=== PATIENT | female | born 1930 | race Caucasian/White ===

== ENCOUNTER 2017-11-30 08:39 | Inpatient (IN) | payer MEDICARE ==
--- NOTE | 2017-11-30 09:09 | EDM.PDOC ---
ED HPI GENERAL MEDICAL PROBLEM - General Chief Complaint: Syncope Stated Complaint: PASSED OUT CONFUSSED Time Seen by Provider: 11/30/17 08:50 Source of Information: Reports: Patient, Family, Group Home Records History Limitations: Reports: No Limitations - History of Present Illness INITIAL COMMENTS - FREE TEXT/NARRATIVE: Melodie is a resident of [facility] who arrives by EMS following an apparent syncopal episode this am. She apparently was walking with walker when she fell down. Staff who found her noted she was initially unresponsive, but eventually was answering simple questions appropriately. There is no reported slurred speech, facial asymmetry, weakness, reported chest pain or SOB. 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 A 12 lead ekg notes NSR. - Related Data Allergies Allergy/AdvReac Type Severity Reaction Status Date / Time No Known Allergies Allergy Verified 11/30/17 09:07 Home Meds: Home Meds Amitriptyline [Elavil] 25 mg PO BEDTIME 11/30/17 [History] Aspirin 325 mg PO DAILY 11/30/17 [History] Calcium Carbonate/Vitamin D3 [Calcium 500 + Vit D Caplet] 1 each PO BID [History] Donepezil HCl 5 mg PO BEDTIME 11/30/17 [History] Gabapentin [Neurontin] 600 mg PO BEDTIME 11/30/17 [History] Lisinopril 2.5 mg PO DAILY 11/30/17 [History] Past Medical History Cardiovascular History: Reports: Hypertension Neurological History: Reports: CVA Psychiatric History: Reports: Dementia ED ROS GENERAL - Review of Systems Review Of Systems: See Below Constitutional: Reports: No Symptoms HEENT: Reports: No Symptoms Respiratory: Reports: No Symptoms Cardiovascular: Reports: Blood Pressure Problem, Lightheadedness, Syncope GI/Abdominal: Reports: No Symptoms : Reports: No Symptoms Musculoskeletal: Reports: No Symptoms Skin: Reports: No Symptoms Neurological: Reports: Dizziness, Pre-Existing Deficit (remote hx of CVA), Syncope Psychiatric: Reports: No Symptoms Hematologic/Lymphatic: Reports: No Symptoms Immunologic: Reports: No Symptoms - Physical Exam Exam: See Below Exam Limited By: No Limitations General Appearance: Alert, WD/WN, No Apparent Distress, Thin Eye Exam: Bilateral Eye: EOMI, Normal Inspection, PERRL Ears: Normal External Exam, Hearing Loss Nose: Normal Inspection Throat/Mouth: Normal Inspection, Normal Oropharynx, Normal Voice, No Airway Compromise Head Exam: Atraumatic, Normocephalic Neck: Normal Inspection, Supple, Non-Tender, Full Range of Motion Respiratory/Chest: Lungs Clear, Normal Breath Sounds, Chest Non-Tender Cardiovascular: Regular Rate, Rhythm, No Murmur GI/Abdominal: Normal Bowel Sounds, Soft, Non-Tender, No Organomegaly, No Distention, No Mass (Female) Exam: Deferred Rectal (Female) Exam: Deferred Neuro Exam (Abbreviated): Alert, Oriented, CN II-XII Intact, No Motor/Sensory Deficits Back Exam: Normal Inspection Extremities: Normal Inspection, Normal Range of Motion Psychiatric: Normal Affect, Normal Mood Skin Exam: Warm, Dry, Intact, Normal Color Course - Vital Signs Text/Narrative:: Following assessment, Melodie was administered 1L NS over the next hour while awaiting lab reports: ekg noted NSR with LBBB (old); chest x ray satisfactory for age; CBC noted Hgb 12.2 gm, WBC 7600, plts normal; CMP noted BUN 22, Cr 1.5 , nonFBS 140 mg%, Troponin I <0.017. BP improved with IV fluids. Her Lisinopril needs to be held pending follow up with PCP. In addition, she will need assistance with ambulation, transfers, toileting, grooming pending re evaluation by PCP. Last Recorded V/S: Last Vital Signs Temp 37.0 C 11/30/17 09:00 Pulse 84 11/30/17 10:00 Resp 17 11/30/17 10:00 BP 86/37 L 11/30/17 10:00 Pulse Ox 100 11/30/17 10:00 - Orders/Labs/Meds Orders: Active Orders 24 hr Category Date Time Status UA W/MICROSCOPIC [URIN] Stat Lab 11/30/17 09:02 Ordered Sodium Chloride 0.9% [Normal Saline] 1,000 ml Med 11/30/17 09:15 Active IV ASDIRECTED Sodium Chloride 0.9% [Normal Saline] 500 ml Med 11/30/17 10:30 Active IV ASDIRECTED EKG 12 Lead [EK] Routine Ther 11/30/17 09:02 Ordered Medication Orders Sodium Chloride (Normal Saline) 1,000 mls @ 999 mls/hr IV ASDIRECTED HIRA Sodium Chloride (Normal Saline) 500 mls @ 999 mls/hr IV ASDIRECTED [facility] Labs: Laboratory Tests 11/30/17 11/30/17 11/30/17 Range/Units 09:15 09:15 09:15 WBC 7.6 (4.5-12.0) X10-3/uL RBC 4.23 (3.23-5.20) x10(6)uL Hgb 12.2 (11.5-15.5) g/dL Hct 36.7 (30.0-51.3) % MCV 86.7 (80-96) fL MCH 28.9 (27.7-33.6) pg MCHC 33.4 (32.2-35.4) g/dL RDW 12.5 (11.5-15.5) % Plt Count 198 (125-369) X10(3)uL MPV 8.4 (7.4-10.4) fL Neut % (Auto) 74.3 (46-82) % Lymph % (Auto) 14.2 (13-37) % Galax % (Auto) 10.7 (4-12) % Eos % (Auto) 0 L (1.0-5.0) % Baso % (Auto) 0 (0-2) % Neut # (Auto) 5.7 (1.6-8.3) # Lymph # (Auto) 1.1 (0.6-5.0) # Galax # (Auto) 0.8 (0.0-1.3) # Eos # (Auto) 0.0 (0.0-0.8) # Baso # (Auto) 0.0 (0.0-0.2) # Sodium 141 (135-145) mmol/L Potassium 4.2 (3.5-5.3) mmol/L Chloride 106 (100-110) mmol/L Carbon Dioxide 24 (21-32) mmol/L BUN 22 H (7-18) mg/dL Creatinine 1.5 H (0.55-1.02) mg/dL Est Cr Clr Drug Dosing TNP Estimated GFR (MDRD) 33 L (>60) BUN/Creatinine Ratio 14.7 (9-20) Glucose 140 H (80-116) mg/dL Calcium 9.0 (8.6-10.2) mg/dL Total Bilirubin 0.5 (0.1-1.3) mg/dL AST 21 (5-25) IU/L ALT 17 (12-36) U/L Alkaline Phosphatase 79 (56-112) IU/L Troponin I < 0.017 L (<0.017-0.056) ng/mL Total Protein 6.4 (6.0-8.0) g/dL Albumin 3.0 L (3.2-4.6) g/dL Globulin 3.4 g/dL Albumin/Globulin Ratio 0.9 Meds: Medications Generic Name Dose Route Start Last Admin Trade Name Freq PRN Reason Stop Dose Admin Sodium Chloride 1,000 mls @ 999 mls/hr 11/30/17 09:15 Normal Saline IV ASDIRECTED HIRA Sodium Chloride 500 mls @ 999 mls/hr 11/30/17 10:30 Normal Saline IV ASDIRECTED HIRA Departure - Departure Time of Disposition: 11:36 Disposition: DC/Tfer to Medicaid N[facility] Condition: Fair Clinical Impression: Syncope and collapse - Discharge Information Referrals: PCP,None [Primary Care Provider] - Forms: ED Department Discharge - Problem List & Annotations (1) Syncope and collapse SNOMED Code(s): 401392875 Code(s): R55 - SYNCOPE AND COLLAPSE Status: Acute Current Visit: Yes Annotation/Comment:: I suggested holding Lisinopril and monitoring BPs in the interim, with follow up by PCP. In addition, she will need assistance with ambulation, transfers, toileting and grooming until re evaluation by PCP. - Problem List Review Problem List Initiated/Reviewed/Updated: Yes - My Orders Last 24 Hours: My Active Orders 11/30/17 09:02 UA W/MICROSCOPIC [URIN] Stat EKG 12 Lead [EK] Routine 11/30/17 09:15 Sodium Chloride 0.9% [Normal Saline] 1,000 ml IV ASDIRECTED 11/30/17 10:30 Sodium Chloride 0.9% [Normal Saline] 500 ml IV ASDIRECTED - Assessment/Plan Last 24 Hours: My Active Orders 11/30/17 09:02 UA W/MICROSCOPIC [URIN] Stat EKG 12 Lead [EK] Routine 11/30/17 09:15 Sodium Chloride 0.9% [Normal Saline] 1,000 ml IV ASDIRECTED 11/30/17 10:30 Sodium Chloride 0.9% [Normal Saline] 500 ml IV ASDIRECTED Plan: Follow up with PCP.
[2017-11-30] MEDS ORDERED: Sodium Chloride 0.9% 1,000 ML IV SCH (09:15)
[2017-11-30] MEDS ORDERED: Sodium Chloride 0.9% 500 ML IV SCH (10:30)
--- NOTE | 2017-11-30 10:43 | CR ---
INDICATION: Syncope. CHEST: An AP upright view of the chest was obtained 11/30/2017 - no comparisons. Overlying EKG leads are noted. The heart is normal in size and shape. The aorta is minimally tortuous with calcification in the arch and descending portion. Dextroconvex scoliosis upper thoracic spine is noted of mild degree, accentuated in appearance by rotation of the chest to the left. Hyperaeration is noted, suggesting the possibility of COPD - correlate clinically. A consolidating pneumonia or effusion was not identified - Heavy markings at the costophrenic angles likely are fibrotic in nature, but do make it difficult to exclude minimal patchy bronchopneumonia. IMPRESSION: 1. No definite acute process, but difficult to exclude minimal patchy bronchopneumonia versus fibrosis at the costophrenic angles. 2. Probable COPD. 3. ASD aorta. 4. Scoliosis versus kyphosis with rotation of the chest. MTDD
--- NOTE | 2017-11-30 15:54 | CT ---
INDICATION: Unwitnessed fall. Recent episode of confusion. CT HEAD WITHOUT CONTRAST: Serial contiguous 2.5 and 5-mm sections were obtained through the brain without contrast and revealed very minimal calcification in the right vertebral artery with more prominent calcifications in the internal carotid arteries. Total Exam DLP = 1565.13 mGy-cm. A moderate sized lacunar infarct is noted in the right thalamus. A small infarct at the anterior limb of the right internal capsule and in the left basal ganglia noted also. 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 No shift of midline structures was identified. Ventricles are slightly prominent compatible with the patient's age and a mild degree of central atrophy. Also noted is cortical atrophy in the frontal area and anterior parietal, as well as temporal areas. No bleeding site or hematoma was seen. The cranium appears to be intact. Mastoid air cells are adequately aerated. Paranasal sinuses appear to be normally aerated. IMPRESSION: 1. No definite acute intracranial abnormality, although a process such as anoxic encephalopathy could be present. The findings in the white matter more likely represent moderately severe microvascular type disease process. 2. Lacunar infarcts. 3. Central and to a greater extent cortical atrophy. Report was given in person to Dr. Almanza immediately after the examination was completed, 11/30/2017. The examination had been repeated due to motion with the total exam DLP being 1565.13 mGy-cm. MTDD
[2017-12-01] MEDS: LISINOPRIL 2.5 MG PO SCH (11:27)
[2017-12-01] MEDS: Aspirin 325 MG Tab.EC PO SCH (11:28)
[2017-12-01] MEDS: Calcium Carbonate/Vitamin D3 1250 MG-200 Unit Tab PO SCH ×2 (11:28→21:19)
--- NOTE | 2017-12-01 13:41 | PN ---
DATE SEEN: 12/01/2017 SUBJECTIVE: Melodie Lee is an elderly female, 87 years of age, [facility] resident, seen today for review. Had a good night. Intravenous fluids were satisfactory, taking fluids better today. She appears otherwise comfortable. Voices concern about living situation. OBJECTIVE: VITAL SIGNS: Stable. Speech is fluent. NECK: Benign. Thyroid small. CHEST: Clear in all lung malave. No adventitious sounds. HEART: Regular without significant ectopy or murmur present. ABDOMEN: Benign. EXTREMITIES: Well perfused. ASSESSMENT: Vasovagal episode. PLAN: Medications, care and treatment appropriate, PT/OT referral, intervention and care. Treatment as appropriate. Discharge planning in place. /[id number] [address]IANO/SU TAYLOR
--- NOTE | 2017-12-01 13:41 | HP ---
ADMISSION DATE: 11/30/2017 REASON FOR ADMISSION: Fall and suspected loss of consciousness, syncope. HISTORY OF PRESENT ILLNESS: Melodie Lee is an 87-year-old female, resides at [facility]. She was in her home in her apartment at [facility], she fell, summoned assistance, attempted to get up, there was a questionable unresponsive spell, responded well, answered questions well, there were no neurological symptoms of significance. She was seen at [facility] ER. Chest x-ray revealed no major pathology except for aging changes, CT of head revealed aging changes, microvascular changes, but no complicating issues. ER laboratory work, similarly comfortable. Normal CBC. Chemistries; BUN 22, GFR 33, negative troponin, and a moderately abnormal urine to be cultured. PAST MEDICAL HISTORY: By report, previous appendectomy. 3, para 3, postmenopausal female. No other operative procedures, hospitalizations, unusual childhood diseases, major injuries, or fractures. MEDICATIONS: Present daily medications include: 1. Amitriptyline 25 mg 1 p.o. at bedtime, sleep enhancement. 2. Aspirin 325 mg daily, CAD prevention. 3. Calcium plus vitamin D2 daily nutrition. 4. Donepezil 5 mg 1 p.o. at bedtime. 5. Gabapentin 600 mg 1 p.o. at bedtime. 6. Lisinopril 2.5 mg daily. SOCIAL HISTORY: . She lives at [facility]. Nonsmoker. Nil alcohol consumption. No illicit drug use. REVIEW OF SYSTEMS: Difficult. She voices no particular complaints. Walks very little. Has upper dentures and lower plate. Breathing has been good. Bowels have been fine. No blood in stools. No blood in urine. No skin rash. Generalized weakness. PHYSICAL EXAMINATION: VITAL SIGNS: Stable and documented. CONSTITUTIONAL: Appears comfortable, soft spoken, hard of hearing. HEENT: Funduscopic benign. Conjunctivae clear. Bright tympanic membranes. Decreased hearing. Clear nasal discharge. Mouth and oropharynx clear. No intraoral lesions. Tongue midline. NECK: Benign. Thyroid small. No adenopathy. No carotid bruits. CHEST: Clear in all lung malave. No adventitious sounds. HEART: Regular. Soft. Grade 2/6 systolic ejection murmur left sternal border. ABDOMEN: Benign. Right lower quadrant appendectomy scar. AND RECTAL: Deferred. EXTREMITIES: Well perfused. Reflexes symmetric, sensation intact. LABORATORY DATA: CBC and electrolyte panel unremarkable. Urinalysis with pyuria. Culture pending. IMPRESSION: Vasovagal episode, weakness, and dehydration likely provoking issue. PLAN: Overnight stay, timing appropriate, PT and OT referral, Mobile Tester, consultation, recommendations, and care to follow. /[id number] [address]O/SU TAYLOR
[2017-12-01] MEDS ORDERED: Calcium Carbonate 500 MG Tab.Chew PO ONE (16:13)
[2017-12-01] MEDS ORDERED: Sodium Chloride 0.9% 1,000 ML IV SCH (18:30)
[2017-12-01] MEDS: Ondansetron 4 MG/2 ML SDV IVPUSH SCH ×2 (19:02→23:23)
[2017-12-01] MEDS: Amitriptyline 25 MG Tab PO SCH (21:20)
[2017-12-01] MEDS: Gabapentin 600 MG Tab *PTOM PO SCH (21:20)
[2017-12-02] MEDS: Ondansetron 4 MG/2 ML SDV IVPUSH SCH ×3 (02:11→13:37)
[2017-12-02] MEDS: Calcium Carbonate/Vitamin D3 1250 MG-200 Unit Tab PO SCH ×2 (08:40→20:40)
[2017-12-02] MEDS: Aspirin 325 MG Tab.EC PO SCH (08:41)
[2017-12-02] MEDS: LISINOPRIL 2.5 MG PO SCH (08:41)
[2017-12-02] MEDS ORDERED: Amoxicillin/Clavulanate K 500-125 MG Tab PO SCH (13:45)
--- NOTE | 2017-12-02 13:47 | PCM.DCSUM1 ---
Discharge Summary - Discharge Data Discharge Date: 12/02/17 Discharge Disposition: Home, Self-Care 01 Condition: Good - Discharge Diagnosis/Problem(s) (1) UTI (urinary tract infection), bacterial SNOMED Code(s): 148474690 ICD Code: N39.0 - URINARY TRACT INFECTION, SITE NOT SPECIFIED; A49.9 - BACTERIAL INFECTION, UNSPECIFIED Status: Acute Current Visit: Yes (2) Syncope and collapse SNOMED Code(s): 209619770 ICD Code: R55 - SYNCOPE AND COLLAPSE Status: Acute Current Visit: Yes - Patient Summary/Data Consults: Consultations 12/01/17 10:16 Consult to Physical Therapy [PT Evaluation and Treatment] [CONS] Routine Please Evaluate and Treat. PT Reason for Consult: weakness an d recent fall This query below is only for informational purposes and is not editable. Admission Diagnosis/Problem: Syncope and collapse 12/01/17 10:21 Consult to Occupational Therapy [OT Evaluation and Treatment] [CONS] Routine Please Evaluate and Treat. OT Reason for Consult: wekaness recent fall This query below is only for informational purposes and is not editable. Admission Diagnosis/Problem: Syncope and collapse - Discharge Plan Prescriptions/Med Rec: Amoxicillin/Clavulanate K [Augmentin 500-125 MG] 1 tab PO Q12HR 5 Days tablet Home Medications: Home Meds Amitriptyline [Elavil] 25 mg PO BEDTIME 11/30/17 [History] Aspirin 325 mg PO DAILY 11/30/17 [History] Calcium Carbonate/Vitamin D3 [Calcium 500 + Vit D Caplet] 1 each PO BID [History] Donepezil HCl 5 mg PO BEDTIME 11/30/17 [History] Gabapentin [Neurontin] 600 mg PO BEDTIME 11/30/17 [History] Lisinopril 2.5 mg PO DAILY 11/30/17 [History] Amoxicillin/Clavulanate K [Augmentin 500-125 MG] 1 tab PO Q12HR 5 Days tablet 12/02/17 [Rx] Patient Handouts: Near-Syncope, [id number], Fall Prevention in Hospitals, Adult, Venous Thromboembolism Prevention Forms: ED Department Discharge Referrals: PCP,None [Primary Care Provider] - - Patient Data Vitals - Most Recent: Last Vital Signs Temp 100 F 12/02/17 04:00 Pulse 99 12/02/17 04:00 Resp 20 12/02/17 04:00 BP 164/72 H 12/02/17 08:41 Pulse Ox 93 L 12/02/17 04:00 Weight - Most Recent: 54.93 kg I&O - Last 24 hours: Intake & Output 12/01/17 12/02/17 12/02/17 22:59 06:59 14:59 Intake Total 596 Output Total 300 0 Balance -300 596 ROLY Results - Last 24 hrs: Microbiology 11/30/17 17:10 Urine Culture - Preliminary Urine, Voided Gram Positive Cocci Med Orders - Current: Current Medications Amitriptyline HCl (Elavil) 25 mg PO BEDTIME [facility] Last Admin: 12/01/17 21:20 Dose: 25 mg Amoxicillin/Clavulanate Potassium (Augmentin 500 Mg\125 Mg) 1 tab PO Q12H [facility] Aspirin (Ecotrin) 325 mg PO DAILY [facility] Last Admin: 12/02/17 08:41 Dose: 325 mg Calcium Carbonate (Calcium Carbonate/Vitamin D 1250 Mg-200 Unit) 1 tab PO BID [facility] Last Admin: 12/02/17 08:40 Dose: 1 tab Donepezil HCl (Aricept) 5 mg PO BEDTIME [facility] Last Admin: 12/01/17 21:19 Dose: 5 mg Gabapentin (Neurontin) 600 mg PO BEDTIME [facility] Last Admin: 12/01/17 21:20 Dose: 600 mg Sodium Chloride (Normal Saline) 1,000 mls @ 999 mls/hr IV ASDIRECTED [facility] Last Admin: 11/30/17 09:15 Dose: 999 mls/hr Sodium Chloride (Normal Saline) 500 mls @ 999 mls/hr IV ASDIRECTED [facility] Last Admin: 11/30/17 10:25 Dose: 999 mls/hr Sodium Chloride (Normal Saline) 1,000 mls @ 75 mls/hr IV ASDIRECTED [facility] Last Admin: 12/01/17 19:03 Dose: 75 mls/hr Lisinopril (Prinivil) 2.5 mg PO DAILY [facility] Last Admin: 12/02/17 08:41 Dose: 2.5 mg Ondansetron HCl (Zofran) 4 mg IVPUSH Q4H [facility] Last Admin: 12/02/17 13:37 Dose: Not Given Discontinued Medications Calcium Carbonate/Glycine (Tums) 1,000 mg PO ONETIME ONE Stop: 12/01/17 16:14 Last Admin: 12/01/17 16:42 Dose: 1,000 mg
[2017-12-02] MEDS ORDERED: Ondansetron 4 MG/2 ML SDV IVPUSH PRN (14:04)
[2017-12-02] MEDS: Ampicillin/Sulbactam Na 1.5 GM in Sodium Chloride 0.9% 50 ML IV SCH (15:18)
--- NOTE | 2017-12-02 15:21 | CR ---
INDICATION: Cough, shortness of breath. CHEST: Two AP upright views of the chest with a lateral view of the chest, 01/2018, were compared with 11/30/2017, and revealed increased infiltrate at the left lung base - costophrenic angle and lower lobe - suggesting pneumonia, possibly some atelectasis in that area. No other change or new acute process was suggested. Findings remain compatible with COPD, ASD aorta, with some scoliosis present. Overlying EKG leads are again noted. IMPRESSION: Increasing parenchymal changes suggested at the left lung base to a minimal degree, suggesting slightly more progressive pneumonia and/or atelectasis in the left lung base - lower lobe. MTDD
[2017-12-02] MEDS: Sodium Chloride 0.9% 10 ML Syringe FLUSH PRN (15:54)
--- NOTE | 2017-12-02 19:34 | PCM.PN ---
- General Info Date of Service: 12/02/17 Subjective Update: 87-year-old female currently hospitalized for debility malaise secondary to UTI growing gram-positive cocci with culture ID and susceptibility pending. She is to come more weak with decreased appetite increase cough congestion along with shortness of breath. She denies any headache, chest pain, vision changes, difficulty chewing or swallowing, speech changes, ear pain, sore throat, swollen glands, nausea or vomiting, wheezing chest pain with cough or deep inspiration, joint swelling or tenderness, palpitations, lightheadedness or dizziness on position change, she admits to feeling cool in the extremities, denies any calf or leg pain. 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 She denies any wounds or pain at her IV access sites. Tells me she has "" tired. " This is my first seeing her, she had up into this point and ready to be discharged today as she made marked improvements with regards to strength, ambulation, resolution of near syncopal episodes, with physiologic vitals, afebrile, slightly improved intake however she has significant history of poor appetite and intake which is been ongoing for the last 2 months. - Review of Systems Systems Review Comment:: For pertinent positives and negatives please see history of present illness - Patient Data Vitals - Most Recent: Last Vital Signs Temp 98.2 F 12/02/17 12:00 Pulse 90 12/02/17 12:00 Resp 18 12/02/17 12:00 BP 112/63 12/02/17 12:00 Pulse Ox 98 12/02/17 12:00 Weight - Most Recent: 54.93 kg I&O - Last 24 Hours: Intake & Output 12/02/17 12/02/17 06:59 14:59 Intake Total 596 600 Output Total 0 30 Balance 596 570 Aiden Results Last 24 Hours: Microbiology 11/30/17 17:10 Urine Culture - Preliminary Urine, Voided Gram Positive Cocci Med Orders - Current: Current Medications Amitriptyline HCl (Elavil) 25 mg PO BEDTIME [facility] Last Admin: 12/01/17 21:20 Dose: 25 mg Aspirin (Ecotrin) 325 mg PO DAILY [facility] Last Admin: 12/02/17 08:41 Dose: 325 mg Calcium Carbonate (Calcium Carbonate/Vitamin D 1250 Mg-200 Unit) 1 tab PO BID [facility] Last Admin: 12/02/17 08:40 Dose: 1 tab Donepezil HCl (Aricept) 5 mg PO BEDTIME [facility] Last Admin: 12/01/17 21:19 Dose: 5 mg Gabapentin (Neurontin) 600 mg PO BEDTIME [facility] Last Admin: 12/01/17 21:20 Dose: 600 mg Ampicillin Sodium/Sulbactam (Sodium 1.5 gm/ Sodium Chloride) 50 mls @ 100 mls/ hr IV Q12H [facility] Last Admin: 12/02/17 15:18 Dose: 100 mls/hr Levofloxacin/Dextrose 750 mg/ (Premix) 150 mls @ 100 mls/hr IV Q48H [facility] Stop: 12/07/17 20:01 Lisinopril (Prinivil) 2.5 mg PO DAILY [facility] Last Admin: 12/02/17 08:41 Dose: 2.5 mg Sodium Chloride (Saline Flush) 10 ml FLUSH ASDIRECTED PRN PRN Reason: Keep Vein Open Last Admin: 12/02/17 15:54 Dose: 10 ml Discontinued Medications Amoxicillin/Clavulanate Potassium (Augmentin 500 Mg\\125 Mg) 1 tab PO Q12H [facility] Calcium Carbonate/Glycine (Tums) 1,000 mg PO ONETIME ONE Stop: 12/01/17 16:14 Last Admin: 12/01/17 16:42 Dose: 1,000 mg Sodium Chloride (Normal Saline) 1,000 mls @ 999 mls/hr IV ASDIRECTED [facility] Last Admin: 11/30/17 09:15 Dose: 999 mls/hr Sodium Chloride (Normal Saline) 500 mls @ 999 mls/hr IV ASDIRECTED [facility] Last Admin: 11/30/17 10:25 Dose: 999 mls/hr Sodium Chloride (Normal Saline) 1,000 mls @ 75 mls/hr IV ASDIRECTED [facility] Last Admin: 12/01/17 19:03 Dose: 75 mls/hr Ondansetron HCl (Zofran) 4 mg IVPUSH Q4H [facility] Last Admin: 12/02/17 13:37 Dose: Not Given Ondansetron HCl (Zofran) 4 mg IVPUSH Q8H PRN PRN Reason: Nausea - Exam Quality Assessment: Supplemental Oxygen General: Oriented, Cooperative, Lethargic HEENT: Pupils Equal, Pupils Reactive. No: Mucous Membr. Moist/Bessie Neck: Supple Lungs: Decreased Breath Sounds, Crackles, Rales Cardiovascular: Regular Rate, Regular Rhythm, Murmurs (2/6) GI/Abdominal Exam: Normal Bowel Sounds, Soft, Non-Tender Extremities: Non-Tender, No Pedal Edema Skin: Dry, Cool Neurological: No New Focal Deficit, Normal Speech - Problem List & Annotations (1) CAP (community acquired pneumonia) SNOMED Code(s): 923437134 Code(s): J18.9 - PNEUMONIA, UNSPECIFIED ORGANISM Status: Acute Current Visit: Yes Qualifiers: Laterality: left (2) UTI (urinary tract infection), bacterial SNOMED Code(s): 292429748 Code(s): N39.0 - URINARY TRACT INFECTION, SITE NOT SPECIFIED; A49.9 - BACTERIAL INFECTION, UNSPECIFIED Status: Acute Current Visit: Yes (3) Palliative care status SNOMED Code(s): 195858114 Code(s): Z51.5 - ENCOUNTER FOR PALLIATIVE CARE Status: Acute Current Visit: Yes (4) Complaint of debility and malaise SNOMED Code(s): 811026823 Code(s): R53.81 - OTHER MALAISE Status: Acute Current Visit: Yes (5) DNI (do not intubate) SNOMED Code(s): 415192981 Code(s): Z78.9 - OTHER SPECIFIED HEALTH STATUS Status: Acute Current Visit: Yes (6) DNR (do not resuscitate) Status: Acute Current Visit: Yes (7) Syncope and collapse SNOMED Code(s): 285605111 Code(s): R55 - SYNCOPE AND COLLAPSE Status: Acute Current Visit: Yes - Problem List Review Problem List Initiated/Reviewed/Updated: Yes - My Orders Last 24 Hours: My Active Orders 12/02/17 BASIC METABOLIC PANEL,BMP [CHEM] Routine C-REACTIVE PROTEIN [CHEM] Routine CBC WITH AUTO DIFF [HEME] Routine 12/02/17 14:11 Sodium Chloride 0.9% [Saline Flush] 10 ml FLUSH ASDIRECTED PRN Convert IV to Saline Lock [OM.PC] Routine 12/02/17 14:30 Ampicillin/Sulbactam Na [Unasyn] 1.5 gm Sodium Chloride 0.9% [Normal Saline] 50 ml IV Q12H 12/02/17 16:13 Discontinue Telemetry Monitoring [Cardiac Monitoring Discontinue] [RC] Click to Edit 12/02/17 19:30 Levofloxacin/Dextrose 5%-Water [Levaquin in D5W 750 MG/150 ML] 750 mg Premix Bag 1 bag IV Q48H 12/02/17 19:31 CULTURE BLOOD [BC] Urgent CULTURE BLOOD [BC] Urgent Blood Culture x2 Reflex Set [OM.PC] Urgent 12/02/17 19:45 Enoxaparin [Lovenox] 30 mg SUBCUT Q24H - Assessment Assessment:: Please see above - Plan Plan:: Patient is actually taken the turn with regards to her alertness and overall fatigue. Physical therapy also notes a significant decline in functional status with regards to transfers and ADLs when compared to yesterday. No focal deficit for cardiopulmonary evidence for event. She was a plan for discharge today she was doing well however at this point she does look to be on the dry side as she has not been taking much oral intake. Culture report on the urine is coming back gram-positive covering for Levaquin sounds in the lungs consistent with pneumonia loss beta-lactam for gram-positive. Once culture sensitivities are back will tailor antibiotic therapy accordingly. IV the preferred route she is not taking much for oral intake. We'll also get her on IV fluids however monitor closely for any fluid overload. Will watch closely overnight. Discussed this with patient and her daughter who is at the bedside and they both agreed to above plan of care. I do anticipate length of stay an additional 24-48 hours pending response to the above medical management. We will continue to try and work with physical therapy and occupational therapy for strengthening and ADLs.
[2017-12-02] MEDS: Enoxaparin 30 MG/0.3 ML Syringe SUBCUT SCH (20:39)
[2017-12-02] MEDS: Amitriptyline 25 MG Tab PO SCH (20:40)
[2017-12-02] MEDS: Gabapentin 600 MG Tab *PTOM PO SCH (20:40)
[2017-12-02] MEDS: Levofloxacin/Dextrose 5%-Water 750 MG in Premix Bag 1 BAG IV SCH (21:50)
[2017-12-03] MEDS: Ampicillin/Sulbactam Na 1.5 GM in Sodium Chloride 0.9% 50 ML IV SCH (02:22)
[2017-12-03] MEDS ORDERED: Sodium Chloride 0.9% 1,000 ML IV SCH ×2 (05:30→14:30)
[2017-12-03] MEDS: Calcium Carbonate/Vitamin D3 1250 MG-200 Unit Tab PO SCH ×2 (09:08→21:20)
[2017-12-03] MEDS: Aspirin 325 MG Tab.EC PO SCH (09:08)
--- NOTE | 2017-12-03 11:33 | PCM.PN ---
- General Info Date of Service: 12/03/17 Subjective Update: Patient is currently lying supine in her bed with both legs elevated knees flexed and head of bed and slight Trendelenburg. She did have an episode of hypotension down to 46 systolic which was remedied by utilization of IV fluid bolus, which did bring her blood pressure back up to the low 80s systolic. She is not having any chest pain pressure or difficulty breathing. Otherwise was asymptomatic. She was in bed when a routine check noticed the diminished blood pressure. She had cool extremities. At this time she is quite weak he takes in a quiet soft voice to the intelligible. Skin is cool to the touch. She has no new focal deficit. She has no chest pain to palpation. She does not show any increased work of breathing. There is no sign of rash, lesions or jaundice. No ecchymosis or petechiae. Tells me she is very tired. EKG review did not show any evidence of acute ST segment elevated MN. Enzymes initially negative. Please see nursing documentation for overnight events. - Review of Systems Systems Review Comment:: For pertinent positives and negatives please see history of present illness - Patient Data Vitals - Most Recent: Last Vital Signs Temp 98.2 F 12/03/17 05:15 Pulse 80 12/03/17 05:15 Resp 18 12/03/17 05:15 BP 43/27 L 12/03/17 05:15 Pulse Ox 90 L 12/03/17 05:15 Weight - Most Recent: 55.066 kg I&O - Last 24 Hours: Intake & Output 12/02/17 12/03/17 22:59 06:59 Intake Total 200 678 Balance 200 678 Lab Results Last 24 Hours: Laboratory Results - last 24 hr 12/02/17 12/02/17 Range/Units 20:30 20:30 WBC 4.7 (4.5-12.0) X10-3/uL RBC 4.65 (3.23-5.20) x10(6)uL Hgb 13.1 (11.5-15.5) g/dL Hct 40.0 (30.0-51.3) % MCV 86.0 (80-96) fL MCH 28.1 (27.7-33.6) pg MCHC 32.7 (32.2-35.4) g/dL RDW 12.9 (11.5-15.5) % Plt Count 194 (125-369) X10(3)uL MPV 8.3 (7.4-10.4) fL Neut % (Auto) 66.9 (46-82) % Lymph % (Auto) 21.2 (13-37) % [place] % (Auto) 11.2 (4-12) % Eos % (Auto) 0 L (1.0-5.0) % Baso % (Auto) 1 (0-2) % Neut # (Auto) 3.2 (1.6-8.3) # Lymph # (Auto) 1.0 (0.6-5.0) # [place] # (Auto) 0.5 (0.0-1.3) # Eos # (Auto) 0.0 (0.0-0.8) # Baso # (Auto) 0.0 (0.0-0.2) # Sodium 134 L (135-145) mmol/L Potassium 4.0 (3.5-5.3) mmol/L Chloride 99 L D (100-110) mmol/L Carbon Dioxide 27 (21-32) mmol/L BUN 19 H (7-18) mg/dL Creatinine 1.1 H (0.55-1.02) mg/dL Est Cr Clr Drug Dosing 30.53 mL/min Estimated GFR (MDRD) 47 L (>60) BUN/Creatinine Ratio 17.3 (9-20) Glucose 98 (80-116) mg/dL Calcium 9.4 (8.6-10.2) mg/dL Aiden Results Last 24 Hours: Microbiology 11/30/17 17:10 Urine Culture - Final Urine, Voided Enterococcus Faecalis Med Orders - Current: Current Medications Amitriptyline HCl (Elavil) 25 mg PO BEDTIME [facility] Last Admin: 12/02/17 20:40 Dose: 25 mg Aspirin (Ecotrin) 325 mg PO DAILY [facility] Last Admin: 12/03/17 09:08 Dose: 325 mg Calcium Carbonate (Calcium Carbonate/Vitamin D 1250 Mg-200 Unit) 1 tab PO BID [facility] Last Admin: 12/03/17 09:08 Dose: 1 tab Donepezil HCl (Aricept) 5 mg PO BEDTIME [facility] Last Admin: 12/02/17 20:40 Dose: 5 mg Enoxaparin Sodium (Lovenox) 30 mg SUBCUT Q24H [facility] Last Admin: 12/02/17 20:39 Dose: 30 mg Gabapentin (Neurontin) 300 mg PO BEDTIME [facility] Levofloxacin/Dextrose 750 mg/ (Premix) 150 mls @ 100 mls/hr IV Q48H [facility] Stop: 12/07/17 20:01 Last Admin: 12/02/17 21:50 Dose: 100 mls/hr Mirtazapine (Remeron) 15 mg PO BEDTIME [facility] Sodium Chloride (Saline Flush) 10 ml FLUSH ASDIRECTED PRN PRN Reason: Keep Vein Open Last Admin: 12/02/17 15:54 Dose: 10 ml Discontinued Medications Amoxicillin/Clavulanate Potassium (Augmentin 500 Mg\125 Mg) 1 tab PO Q12H [facility] Calcium Carbonate/Glycine (Tums) 1,000 mg PO ONETIME ONE Stop: 12/01/17 16:14 Last Admin: 12/01/17 16:42 Dose: 1,000 mg Gabapentin (Neurontin) 600 mg PO BEDTIME [facility] Last Admin: 12/02/17 20:40 Dose: 600 mg Sodium Chloride (Normal Saline) 1,000 mls @ 999 mls/hr IV ASDIRECTED [facility] Last Admin: 11/30/17 09:15 Dose: 999 mls/hr Sodium Chloride (Normal Saline) 500 mls @ 999 mls/hr IV ASDIRECTED [facility] Last Admin: 11/30/17 10:25 Dose: 999 mls/hr Sodium Chloride (Normal Saline) 1,000 mls @ 75 mls/hr IV ASDIRECTED [facility] Last Admin: 12/01/17 19:03 Dose: 75 mls/hr Ampicillin Sodium/Sulbactam (Sodium 1.5 gm/ Sodium Chloride) 50 mls @ 100 mls/ hr IV Q12H [facility] Last Admin: 12/03/17 02:22 Dose: 100 mls/hr Sodium Chloride (Normal Saline) 1,000 mls @ 999 mls/hr IV ASDIRECTED [facility] Stop: 12/03/17 06:30 Last Admin: 12/03/17 05:25 Dose: 500 mls/hr Lisinopril (Prinivil) 2.5 mg PO DAILY [facility] Last Admin: 12/02/17 08:41 Dose: 2.5 mg Ondansetron HCl (Zofran) 4 mg IVPUSH Q4H [facility] Last Admin: 12/02/17 13:37 Dose: Not Given Ondansetron HCl (Zofran) 4 mg IVPUSH Q8H PRN PRN Reason: Nausea - Exam Quality Assessment: Supplemental Oxygen General: Oriented, Cooperative, Lethargic (very) HEENT: Pupils Equal, Pupils Reactive, Other (Dry mucous membranes). No: Scleral Icterus Neck: Supple. No: No JVD Lungs: Decreased Breath Sounds, Crackles Cardiovascular: Regular Rate, Regular Rhythm, Murmurs (2/6) GI/Abdominal Exam: Soft, Non-Tender, Other (Diminished bowel sounds). No: Rigid Extremities: Non-Tender, Slow Capillary Refill, Other (1+ edema bilateral left to the mention). No: Leg Pain Peripheral Pulses: 1+: Dorsalis Pedis (L), Dorsalis Pedis (R), 2+: Carotid (L), Carotid (R), Radial (L), Radial (R) Skin: Intact, Cool Neurological: No New Focal Deficit, Normal Speech, Strength Equal Bilateral, Sensation Intact, Cranial Nerves Intact - Problem List & Annotations (1) Cardiogenic shock SNOMED Code(s): 72349557 Code(s): R57.0 - CARDIOGENIC SHOCK Status: Acute Current Visit: Yes (2) Septic shock SNOMED Code(s): 86324221 Code(s): A41.9 - SEPSIS, UNSPECIFIED ORGANISM; R65.21 - SEVERE SEPSIS WITH SEPTIC SHOCK Status: Acute Current Visit: Yes (3) CAP (community acquired pneumonia) SNOMED Code(s): 237099700 Code(s): J18.9 - PNEUMONIA, UNSPECIFIED ORGANISM Status: Acute Current Visit: Yes Qualifiers: Laterality: left (4) UTI (urinary tract infection), bacterial SNOMED Code(s): 296784616 Code(s): N39.0 - URINARY TRACT INFECTION, SITE NOT SPECIFIED; A49.9 - BACTERIAL INFECTION, UNSPECIFIED Status: Acute Current Visit: Yes (5) Hypotension SNOMED Code(s): 58678370 Code(s): I95.9 - HYPOTENSION, UNSPECIFIED Status: Acute Priority: High Current Visit: Yes Onset Date: 12/03/17 (6) Palliative care status SNOMED Code(s): 263792158 Code(s): Z51.5 - ENCOUNTER FOR PALLIATIVE CARE Status: Acute Current Visit: Yes (7) Complaint of debility and malaise SNOMED Code(s): 345335302 Code(s): R53.81 - OTHER MALAISE Status: Acute Current Visit: Yes (8) DNI (do not intubate) SNOMED Code(s): 636902592 Code(s): Z78.9 - OTHER SPECIFIED HEALTH STATUS Status: Acute Current Visit: Yes (9) DNR (do not resuscitate) Status: Acute Current Visit: Yes (10) Syncope and collapse SNOMED Code(s): 025536922 Code(s): R55 - SYNCOPE AND COLLAPSE Status: Acute Current Visit: Yes (11) History of CVA with residual deficit SNOMED Code(s): 984362773 Code(s): I69.30 - UNSPECIFIED SEQUELAE OF CEREBRAL INFARCTION Status: Acute Current Visit: Yes - Problem List Review Problem List Initiated/Reviewed/Updated: Yes - My Orders Last 24 Hours: My Active Orders 12/03/17 11:26 BASIC METABOLIC PANEL,BMP [CHEM] Routine CBC WITH AUTO DIFF [HEME] Routine PRO B-TYPE NATRIUR PEPT,BNPPRO [CHEM] Routine 12/03/17 11:27 EKG Documentation Completion [RC] ASDIRECTED TROPONIN I [CHEM] Routine EKG 12 Lead [EK] Routine 12/03/17 11:28 Notify Provider Vital Signs [RC] ASDIRECTED Vital Signs [RC] Q30M 12/03/17 11:29 Communication Order [RC] Q4H 12/03/17 21:00 Gabapentin [Neurontin] 300 mg PO BEDTIME Mirtazapine [Remeron] 15 mg PO BEDTIME - Assessment Assessment:: Assessment please see above - Plan Plan:: Discussed the patient and her daughter the overnight events. Preliminary cardiac enzymes and EKG do not show large acute cardiac defect, I also discussed the results of the urine culture which shows susceptibility of enterococcus to Levaquin which we will continue IV and discontinue the ampicillin. Discussed that recent hypotension could be the result of bacterial infection once encountered with antibiotics leading to peripheral vascular dilation leading to hypoperfusion at which point could also lead to heart attack and/or stroke. At this point we have treated with fluid which is appropriate and her blood pressures have improved however we will continue to monitor vitals every 15-30 minutes and if not improving with a systolic blood pressure greater than 100 and she will be transferred to the ICU for one-on-one nursing and telemetry. Will also be placing urinary catheter for strict ins and outs monitoring should she require more fluid resuscitation for she she require vasopressors to support her blood pressure and organ perfusion. I did discuss with the patient and her daughter regarding her CODE STATUS and they both indicate that she would not want to be intubated for ventilatory support nor have any type of cardiac resuscitation in the form of chest compressions, defibrillation or external pacing. Also tells me that should she continue to have decreased appetite and not wish to take oral nutrition, she does not wish to have any form of parentaral nutrition nor gastric tubes. They do agree to be treated medically which is appropriate and do agreed ICU admission which will likely be required. Do anticipate hospital stay an additional 48-72 hours pending response to the above medical management. Appropriate labs and studies will be ordered accordingly and intermittently as needed. The patient does agree to these evaluations, monitoring and interventions.
[2017-12-03] MEDS ORDERED: Nitroglycerin 0.4 MG Tab.SL SL PRN (16:37)
[2017-12-03] MEDS ORDERED: Lanolin/Mineral Oil/Petrolatum Ophth Oint 3.5 GM Tube EYERT PRN (16:37)
[2017-12-03] MEDS ORDERED: DOBUTamine/Dextrose 5%-Water 500 MG/250 ML BAG IV SCH (16:45)
[2017-12-03] MEDS: Enoxaparin 30 MG/0.3 ML Syringe SUBCUT SCH (20:51)
[2017-12-03] MEDS ORDERED: Gabapentin 300 MG Cap PO SCH (21:00)
[2017-12-03] MEDS ORDERED: Mirtazapine 15 MG Tab PO SCH (21:00)
[2017-12-04] MEDS ORDERED: Sodium Chloride 0.9% 250 ML IV ONE ×2 (02:47→03:15)
[2017-12-04] MEDS: Sodium Chloride 0.9% 10 ML Syringe FLUSH PRN (03:00)
[2017-12-04] MEDS ORDERED: Sodium Chloride 0.9% 1,000 ML IV SCH (06:30)
[2017-12-04] MEDS ORDERED: DOBUTamine/Dextrose 5%-Water 250 MG/250 ML BAG IV SCH (06:45)
[2017-12-04] MEDS ORDERED: cefTRIAXone 1,000 MG in Sodium Chloride 0.9% 50 ML IV SCH (09:00)
--- NOTE | 2017-12-04 09:02 | PCM.PN ---
- General Info Date of Service: 12/04/17 Subjective Update: Patient is being seen in ICU 1. She required transfer yesterday afternoon after serial vitals indicated systolic blood pressures running in the 60s to 80s, along with decreasing mental status and increasing fatigue. Evaluation at that time did show clinical signs and symptoms consistent with right cerebrovascular event with right-sided facial drooping, deviation of the tongue, left upper and lower extremity weakness when compared to the right. Stat head CT was negative for acute intracranial bleed prior CVAs were noted. EKG was negative for acute ST segment elevation however cardiac enzymes were slightly elevated. CRP also elevated slightly up to 4. Urine output had decreased and Muir catheter was placed for strict monitoring of intake and output. I started her on a dobutamine drip roughly 6:30 AM due to sustained low blood pressures and evidence of hypoperfusion. She continue to remain alert oriented without cardiopulmonary distress denied shortness of breath or chest pain pressure. She only discussed having a right temporal headache which was dull. (Her daughter is here with her at the bedside, I spoken with her on the phone during the evening shortly after transfer to the ICU informing her that her status had significantly changed indicating she has had a repeat right CVA and possible NV in the setting of sepsis)-I informed her that there was a possibility she would not make it through the evening despite medical interventions. Again she agreed that she did not want any heroic measures but did agree to pressors and continuing fluids antibiotics and other medical interventions as warranted. - Review of Systems Systems Review Comment:: Main complaint was that "I'm very cold ". We had to put roughly 5 blankets on her to keep her warm. She was starting to show an elevation in temperature. - Patient Data Vitals - Most Recent: Last Vital Signs Temp 100.1 F 12/04/17 06:00 Pulse 90 12/04/17 07:15 Resp 19 12/04/17 08:00 BP 80/48 L 12/04/17 08:00 Pulse Ox 98 12/04/17 08:00 Weight - Most Recent: 56.245 kg I&O - Last 24 Hours: Intake & Output 12/03/17 12/04/17 22:59 06:59 Intake Total 450 Output Total 1000 275 Balance -1000 175 Lab Results Last 24 Hours: Laboratory Results - last 24 hr 12/03/17 12/03/17 12/03/17 Range/Units 12:45 12:45 12:45 WBC 4.0 L (4.5-12.0) X10-3/uL RBC 4.08 (3.23-5.20) x10(6)uL Hgb 11.7 (11.5-15.5) g/dL Hct 35.4 (30.0-51.3) % MCV 86.7 (80-96) fL MCH 28.8 (27.7-33.6) pg MCHC 33.2 (32.2-35.4) g/dL RDW 12.6 (11.5-15.5) % Plt Count 144 (125-369) X10(3)uL MPV 8.3 (7.4-10.4) fL Neut % (Auto) 51.5 (46-82) % Lymph % (Auto) 33.8 (13-37) % Rooks % (Auto) 13.7 H (4-12) % Eos % (Auto) 0 L (1.0-5.0) % Baso % (Auto) 1 (0-2) % Neut # (Auto) 2.0 (1.6-8.3) # Lymph # (Auto) 1.4 (0.6-5.0) # Rooks # (Auto) 0.6 (0.0-1.3) # Eos # (Auto) 0.0 (0.0-0.8) # Baso # (Auto) 0.0 (0.0-0.2) # Sodium 135 (135-145) mmol/L Potassium 3.7 (3.5-5.3) mmol/L Chloride 103 (100-110) mmol/L Carbon Dioxide 24 (21-32) mmol/L BUN 27 H (7-18) mg/dL Creatinine 1.4 H (0.55-1.02) mg/dL Est Cr Clr Drug Dosing 23.99 mL/min Estimated GFR (MDRD) 35 L (>60) BUN/Creatinine Ratio 19.3 (9-20) Glucose 100 (80-116) mg/dL Calcium 8.8 (8.6-10.2) mg/dL Troponin I (<0.017-0.056) ng/mL NT-Pro-B Natriuret Pep 2231 H* (<=450) pg/mL 12/03/17 Range/Units 12:45 WBC (4.5-12.0) X10-3/uL RBC (3.23-5.20) x10(6)uL Hgb (11.5-15.5) g/dL Hct (30.0-51.3) % MCV (80-96) fL MCH (27.7-33.6) pg MCHC (32.2-35.4) g/dL RDW (11.5-15.5) % Plt Count (125-369) X10(3)uL MPV (7.4-10.4) fL Neut % (Auto) (46-82) % Lymph % (Auto) (13-37) % Rooks % (Auto) (4-12) % Eos % (Auto) (1.0-5.0) % Baso % (Auto) (0-2) % Neut # (Auto) (1.6-8.3) # Lymph # (Auto) (0.6-5.0) # Rooks # (Auto) (0.0-1.3) # Eos # (Auto) (0.0-0.8) # Baso # (Auto) (0.0-0.2) # Sodium (135-145) mmol/L Potassium (3.5-5.3) mmol/L Chloride (100-110) mmol/L Carbon Dioxide (21-32) mmol/L BUN (7-18) mg/dL Creatinine (0.55-1.02) mg/dL Est Cr Clr Drug Dosing mL/min Estimated GFR (MDRD) (>60) BUN/Creatinine Ratio (9-20) Glucose (80-116) mg/dL Calcium (8.6-10.2) mg/dL Troponin I 0.064 H (<0.017-0.056) ng/mL NT-Pro-B Natriuret Pep (<=450) pg/mL Aiden Results Last 24 Hours: Microbiology 12/02/17 20:30 Aerobic Blood Culture - Preliminary Blood - Venous NO GROWTH AFTER 1 DAY Anaerobic Blood Culture - Preliminary NO GROWTH AFTER 1 DAY 12/02/17 20:35 Aerobic Blood Culture - Preliminary Blood - Venous - Lab Draw NO GROWTH AFTER 1 DAY Anaerobic Blood Culture - Preliminary NO GROWTH AFTER 1 DAY Med Orders - Current: Current Medications Acetaminophen (Tylenol) 650 mg PO Q4H PRN PRN Reason: fever > 101 Amitriptyline HCl (Elavil) 25 mg PO BEDTIME [facility] Last Admin: 12/02/17 20:40 Dose: 25 mg Artificial Tears (Artificial Tears) 0 gm EYERT DAILY PRN PRN Reason: Dry Eyes Aspirin (Ecotrin) 325 mg PO DAILY [facility] Last Admin: 12/03/17 09:08 Dose: 325 mg Calcium Carbonate (Calcium Carbonate/Vitamin D 1250 Mg-200 Unit) 1 tab PO BID [facility] Last Admin: 12/03/17 21:20 Dose: Not Given Donepezil HCl (Aricept) 5 mg PO BEDTIME [facility] Last Admin: 12/03/17 21:20 Dose: Not Given Enoxaparin Sodium (Lovenox) 30 mg SUBCUT Q24H [facility] Last Admin: 12/03/17 20:51 Dose: 30 mg Gabapentin (Neurontin) 300 mg PO BEDTIME [facility] Last Admin: 12/03/17 21:21 Dose: Not Given Levofloxacin/Dextrose 750 mg/ (Premix) 150 mls @ 100 mls/hr IV Q48H [facility] Stop: 12/07/17 20:01 Last Admin: 12/02/17 21:50 Dose: 100 mls/hr Sodium Chloride (Normal Saline) 1,000 mls @ 75 mls/hr IV ASDIRECTED [facility] Last Admin: 12/04/17 06:47 Dose: 75 mls/hr Dobutamine HCl/Dextrose (Dobutamine In D5w 250 Mg/250 Ml) 250 mg in 250 mls @ 6.749 mls/hr IV TITRATE [facility]IRA; Protocol Last Titration: 12/04/17 08:27 Dose: 5 mcg/kg/min, 16.874 mls/hr Ceftriaxone Sodium 1,000 mg/ (Sodium Chloride) 50 mls @ 100 mls/hr IV Q24H [facility] Mirtazapine (Remeron) 15 mg PO BEDTIME [facility] Nitroglycerin (Nitrostat) 0.4 mg SL Q5M PRN PRN Reason: Chest Pain Sodium Chloride (Saline Flush) 10 ml FLUSH ASDIRECTED PRN PRN Reason: Keep Vein Open Last Admin: 12/04/17 03:00 Dose: 10 ml Discontinued Medications Amoxicillin/Clavulanate Potassium (Augmentin 500 Mg\\125 Mg) 1 tab PO Q12H [facility] Calcium Carbonate/Glycine (Tums) 1,000 mg PO ONETIME ONE Stop: 12/01/17 16:14 Last Admin: 12/01/17 16:42 Dose: 1,000 mg Gabapentin (Neurontin) 600 mg PO BEDTIME [facility] Last Admin: 12/02/17 20:40 Dose: 600 mg Sodium Chloride (Normal Saline) 1,000 mls @ 999 mls/hr IV ASDIRECTED [facility] Last Admin: 11/30/17 09:15 Dose: 999 mls/hr Sodium Chloride (Normal Saline) 500 mls @ 999 mls/hr IV ASDIRECTED [facility] Last Admin: 11/30/17 10:25 Dose: 999 mls/hr Sodium Chloride (Normal Saline) 1,000 mls @ 75 mls/hr IV ASDIRECTED [facility] Last Admin: 12/01/17 19:03 Dose: 75 mls/hr Ampicillin Sodium/Sulbactam (Sodium 1.5 gm/ Sodium Chloride) 50 mls @ 100 mls/ hr IV Q12H [facility] Last Admin: 12/03/17 02:22 Dose: 100 mls/hr Sodium Chloride (Normal Saline) 1,000 mls @ 999 mls/hr IV ASDIRECTED [facility] Stop: 12/03/17 06:30 Last Admin: 12/03/17 05:25 Dose: 500 mls/hr Sodium Chloride (Normal Saline) 1,000 mls @ 250 mls/hr IV ASDIRECTED [facility] Stop: 12/03/17 18:29 Last Admin: 12/03/17 15:00 Dose: Not Given Dobutamine HCl/Dextrose (Dobutamine 500 Mg In D5w 250 Ml) 500 mg in 250 mls @ 3.304 mls/hr IV TITRATE [facility]; Protocol Sodium Chloride (Normal Saline) 250 mls @ 250 mls/hr IV ONETIME ONE Stop: 12/04/17 04:14 Last Admin: 12/04/17 03:00 Dose: 250 mls/hr Lisinopril (Prinivil) 2.5 mg PO DAILY [facility] Last Admin: 12/02/17 08:41 Dose: 2.5 mg Ondansetron HCl (Zofran) 4 mg IVPUSH Q4H [facility] Last Admin: 12/02/17 13:37 Dose: Not Given Ondansetron HCl (Zofran) 4 mg IVPUSH Q8H PRN PRN Reason: Nausea - Exam Physical Findings Comments:: Quality Assessment: Supplemental Oxygen General: Oriented, Cooperative, Lethargic (very) likes to have a small towel covering her eyes, as it helps her headache HEENT: Pupils Equal, Pupils Reactive, Other (Dry mucous membranes). Obvious right facial drooping, tongue deviates to the left on protrusion. No: Scleral Icterus Neck: Supple. Obvious mild JVD Lungs: Decreased Breath Sounds, Crackles Cardiovascular: Regular Rate, Regular Rhythm, Murmurs (2/6) GI/Abdominal Exam: Soft, Non-Tender, Other (Diminished bowel sounds). No: Rigid Extremities: Non-Tender, Slow Capillary Refill, Other (1+ edema bilateral left to the mention). No: Leg Pain Peripheral Pulses: 1+: Dorsalis Pedis (L), Dorsalis Pedis (R), 2+: Carotid (L), Carotid (R), Radial (L), Radial (R) Skin: Intact, Cool Neurological: New Focal Deficit, soft quiet intelligible speech, oriented, answers questions appropriately, follows commands. strength is 4 out 5 upper and lower extremities on the right, 2 out of 5 on the left. Sensation Intact - Problem List & Annotations (1) Cardiogenic shock SNOMED Code(s): 66783195 Code(s): R57.0 - CARDIOGENIC SHOCK Status: Acute Current Visit: Yes (2) CVA (cerebral vascular accident) SNOMED Code(s): 243066614 Code(s): I63.9 - CEREBRAL INFARCTION, UNSPECIFIED Status: Acute Current Visit: Yes Onset Date: 12/03/17 Qualifiers: Precerebral and cerebral artery: middle cerebral artery Laterality of affected vessel: right Annotation/Comment:: Right sided ischemic due to hypoperfusion from cardiogenic shock. (3) Hypotension SNOMED Code(s): 23564295 Code(s): I95.9 - HYPOTENSION, UNSPECIFIED Status: Acute Priority: High Current Visit: Yes Onset Date: 12/03/17 (4) CAP (community acquired pneumonia) SNOMED Code(s): 241227611 Code(s): J18.9 - PNEUMONIA, UNSPECIFIED ORGANISM Status: Acute Current Visit: Yes Qualifiers: Laterality: left (5) UTI (urinary tract infection), bacterial SNOMED Code(s): 090596092 Code(s): N39.0 - URINARY TRACT INFECTION, SITE NOT SPECIFIED; A49.9 - BACTERIAL INFECTION, UNSPECIFIED Status: Acute Current Visit: Yes (6) Palliative care status SNOMED Code(s): 284394180 Code(s): Z51.5 - ENCOUNTER FOR PALLIATIVE CARE Status: Acute Current Visit: Yes (7) Complaint of debility and malaise SNOMED Code(s): 565152518 Code(s): R53.81 - OTHER MALAISE Status: Acute Current Visit: Yes (8) DNI (do not intubate) SNOMED Code(s): 277277370 Code(s): Z78.9 - OTHER SPECIFIED HEALTH STATUS Status: Acute Current Visit: Yes (9) DNR (do not resuscitate) Status: Acute Current Visit: Yes (10) Syncope and collapse SNOMED Code(s): 916419293 Code(s): R55 - SYNCOPE AND COLLAPSE Status: Acute Current Visit: Yes (11) History of CVA with residual deficit SNOMED Code(s): 790273025 Code(s): I69.30 - UNSPECIFIED SEQUELAE OF CEREBRAL INFARCTION Status: Acute Current Visit: Yes (12) Muir catheter in place SNOMED Code(s): 177380746 Code(s): Z92.89 - PERSONAL HISTORY OF OTHER MEDICAL TREATMENT Status: Acute Current Visit: Yes Onset Date: 12/03/17 - Problem List Review Problem List Initiated/Reviewed/Updated: Yes - My Orders Last 24 Hours: My Active Orders 12/04/17 06:30 Sodium Chloride 0.9% [Normal Saline] 1,000 ml IV ASDIRECTED 12/04/17 06:45 DOBUTamine/Dextrose 5%-Water [DOBUTamine in D5W 250 MG/250 ML] 250 mg in 250 ml IV TITRATE 12/04/17 08:36 C-REACTIVE PROTEIN [CHEM] Routine CBC WITH AUTO DIFF [HEME] Routine COMPREHENSIVE METABOLIC PN,CMP [CHEM] Routine LACTIC ACID [CHEM] Routine TROPONIN I [CHEM] Routine EKG 12 Lead [EK] Routine 12/04/17 08:42 EKG Documentation Completion [RC] ASDIRECTED 12/04/17 09:00 cefTRIAXone [Rocephin] 1,000 mg Sodium Chloride 0.9% [Normal Saline] 50 ml IV Q24H 12/04/17 Breakfast National Dysphagia Diet [DIET] - Assessment Assessment:: See above - Plan Plan:: Discussed with the patient and her daughter the overnight events regards to persistent hypotension not responsive to small fluid boluses. They were agreeable to dobutamine drip which had been started per my orders. This did bring up her pulse and blood pressure to keep greater than 120 systolic to improve perfusion to the brain and kidneys as ionitroph. Telemetry continues to show sinus rhythm sinus tachycardia intermittently up to the 110-115 range. Tylenol given for fever and headache which is improving. She is already on aspirin and she was not a candidate for thrombolytic. Continues on prophylactic Lovenox subcutaneous. Levaquin will continue IV. I was going to add Rocephin IV due to recent events for additional coverage however after discussion with the daughter and patient they wish to just continue with the Levaquin and discontinue the dobutamine. I did discuss with the patient and her daughter regarding her CODE STATUS and they both indicate that she would not want to be intubated for ventilatory support nor have any type of cardiac resuscitation in the form of chest compressions, defibrillation or external pacing. Also tells me that if she should continue to have decreased appetite and is started on the mertazipine, but appetite not improved, and no longer wish to take oral nutrition, she does not wish to have any form of parentaral nutrition nor gastric tubes. They do agree to be treated medically which is appropriate and do agreed to continued ICU admission for close assessment and monitoring. Anticipate hospital stay an additional ICU stay 24-48 hours pending response to the above medical management. Appropriate labs and studies will be ordered accordingly and intermittently as needed. The patient does agree to these evaluations, monitoring and interventions.
[2017-12-04] MEDS: Aspirin 325 MG Tab.EC PO SCH (09:47)
[2017-12-04] MEDS: Calcium Carbonate/Vitamin D3 1250 MG-200 Unit Tab PO SCH ×2 (09:47→20:09)
[2017-12-04] MEDS: Acetaminophen 325 MG Tab PO PRN ×2 (12:43→20:03)
[2017-12-04] MEDS: D5 1/2 NS w/ 10 mEq/L KCl 1,000 ML IV SCH (19:56)
[2017-12-04] MEDS: Levofloxacin/Dextrose 5%-Water 750 MG in Premix Bag 1 BAG IV SCH (19:59)
[2017-12-04] MEDS: Enoxaparin 30 MG/0.3 ML Syringe SUBCUT SCH (20:02)
[2017-12-04] MEDS: Gabapentin 300 MG Cap PO SCH (20:03)
[2017-12-05] MEDS: Calcium Carbonate/Vitamin D3 1250 MG-200 Unit Tab PO SCH ×2 (09:01→20:07)
[2017-12-05] MEDS: Gabapentin 300 MG Cap PO SCH ×2 (09:02→20:07)
[2017-12-05] MEDS: Aspirin 325 MG Tab.EC PO SCH (09:02)
--- NOTE | 2017-12-05 10:06 | PCM.PN ---
- General Info Date of Service: 12/05/17 Subjective Update: Mrs. Lee is seen in the ICU bed. She is sitting up her breakfast in front of her. Asked her if she would like some of her coffee and pancake which she indicates yes. She takes several swallows for me at the coffee and applied a pancake. No coughing, choking or difficulty swallowing. Me she's done. She still feels quite weak but that her headache is resolved. Tells me should not having any chest pain, difficulty breathing, back pain, abdominal pain, pelvic pain, joint or leg pain, nausea or dizziness with head movement, cold heat or light sensitivity, worsening weakness of the upper or lower extremities, or confusion. Doesn't like to wear her O2 nasal cannula as it bothers her upper lip. She's had no events overnight on telemetry. Her blood pressures have remained greater than 100 systolic. Functional Status: Reports: Tolerating Diet (Poor appetite, but does sit up and take several sips of coffee for me and tried to eat a bite of pancake. There is no coughing or choking with swallowing she did quite well.), Other (Muir catheter draining clear yellow urine with excellent urine output. She has no complaints of the Muir.). Denies: New Symptoms - Review of Systems Systems Review Comment:: Please see above - Patient Data Vitals - Most Recent: Last Vital Signs Temp 97.4 F 12/05/17 07:50 Pulse 90 12/04/17 07:15 Resp 16 12/05/17 09:00 BP 126/80 12/05/17 09:00 Pulse Ox 94 L 12/05/17 07:50 Weight - Most Recent: 54.93 kg I&O - Last 24 Hours: Intake & Output 12/04/17 12/05/17 22:59 06:59 Intake Total 845 900 Output Total 800 650 Balance 45 250 Lab Results Last 24 Hours: Laboratory Results - last 24 hr 12/04/17 Range/Units 12:35 Urine Color Yellow (YELLOW) Urine Appearance Clear (CLEAR) Urine pH 5.0 (5.0-6.5) Ur Specific [place] 1.010 (1.010-1.025) Urine Protein Negative (NEGATIVE) mg/dL Urine Glucose (UA) Normal (NEGATIVE) mg/dL Urine Ketones Negative (NEGATIVE) mg/dL Urine Occult Blood Moderate H (NEGATIVE) Urine Nitrite Negative (NEGATIVE) Urine Bilirubin Negative (NEGATIVE) Urine Urobilinogen Normal (NEGATIVE) mg/dL Ur Leukocyte Esterase Negative (NEGATIVE) Urine RBC 5-10 (0) Urine WBC 0-5 (0) Ur Squamous Epith Cells Occasional (NS,R,O) Urine Bacteria Few H (NS) Aiden Results Last 24 Hours: Microbiology 12/02/17 20:35 Aerobic Blood Culture - Preliminary Blood - Venous - Lab Draw NO GROWTH AFTER 2 DAYS Anaerobic Blood Culture - Preliminary NO GROWTH AFTER 2 DAYS 12/02/17 20:30 Aerobic Blood Culture - Preliminary Blood - Venous NO GROWTH AFTER 2 DAYS Anaerobic Blood Culture - Preliminary NO GROWTH AFTER 2 DAYS Med Orders - Current: Current Medications Acetaminophen (Tylenol) 650 mg PO Q4H PRN PRN Reason: fever > 101 Last Admin: 12/04/17 20:03 Dose: 650 mg Amitriptyline HCl (Elavil) 25 mg PO BEDTIME [facility] Last Admin: 12/02/17 20:40 Dose: 25 mg Artificial Tears (Artificial Tears) 0 gm EYERT DAILY PRN PRN Reason: Dry Eyes Aspirin (Ecotrin) 325 mg PO DAILY [facility] Last Admin: 12/05/17 09:02 Dose: 325 mg Calcium Carbonate (Calcium Carbonate/Vitamin D 1250 Mg-200 Unit) 1 tab PO BID [facility] Last Admin: 12/05/17 09:01 Dose: 1 tab Donepezil HCl (Aricept) 5 mg PO BEDTIME [facility] Last Admin: 12/04/17 20:09 Dose: Not Given Enoxaparin Sodium (Lovenox) 30 mg SUBCUT Q24H [facility] Last Admin: 12/04/17 20:02 Dose: 30 mg Gabapentin (Neurontin) 300 mg PO BID [facility] Last Admin: 12/05/17 09:02 Dose: 300 mg Levofloxacin/Dextrose 750 mg/ (Premix) 150 mls @ 100 mls/hr IV Q48H [facility] Stop: 12/07/17 20:01 Last Admin: 12/04/17 19:59 Dose: 100 mls/hr Dobutamine HCl/Dextrose (Dobutamine In D5w 250 Mg/250 Ml) 250 mg in 250 mls @ 6.749 mls/hr IV TITRATE [facility]; Protocol Last Titration: 12/04/17 09:44 Dose: 0 mcg/kg/min, 0 mls/hr Potassium Chloride/Dextrose/Sod Cl (D5 1/2 Ns W/ 10 Meq/L Kcl) 1,000 mls @ 50 mls/hr IV ASDIRECTED [facility] Last Infusion: 12/05/17 09:14 Dose: 50 mls/hr Nitroglycerin (Nitrostat) 0.4 mg SL Q5M PRN PRN Reason: Chest Pain Sodium Chloride (Saline Flush) 10 ml FLUSH ASDIRECTED PRN PRN Reason: Keep Vein Open Last Admin: 12/04/17 03:00 Dose: 10 ml Discontinued Medications Calcium Carbonate/Glycine (Tums) 1,000 mg PO ONETIME ONE Stop: 12/01/17 16:14 Last Admin: 12/01/17 16:42 Dose: 1,000 mg Gabapentin (Neurontin) 600 mg PO BEDTIME [facility] Last Admin: 12/02/17 20:40 Dose: 600 mg Gabapentin (Neurontin) 300 mg PO BEDTIME [facility] Last Admin: 12/03/17 21:21 Dose: Not Given Sodium Chloride (Normal Saline) 1,000 mls @ 999 mls/hr IV ASDIRECTED [facility] Last Admin: 11/30/17 09:15 Dose: 999 mls/hr Sodium Chloride (Normal Saline) 500 mls @ 999 mls/hr IV ASDIRECTED [facility] Last Admin: 11/30/17 10:25 Dose: 999 mls/hr Sodium Chloride (Normal Saline) 1,000 mls @ 75 mls/hr IV ASDIRECTED [facility] Last Admin: 12/01/17 19:03 Dose: 75 mls/hr Ampicillin Sodium/Sulbactam (Sodium 1.5 gm/ Sodium Chloride) 50 mls @ 100 mls/ hr IV Q12H [facility] Last Admin: 12/03/17 02:22 Dose: 100 mls/hr Sodium Chloride (Normal Saline) 1,000 mls @ 999 mls/hr IV ASDIRECTED [facility] Stop: 12/03/17 06:30 Last Admin: 12/03/17 05:25 Dose: 500 mls/hr Sodium Chloride (Normal Saline) 1,000 mls @ 250 mls/hr IV ASDIRECTED [facility] Stop: 12/03/17 18:29 Last Admin: 12/03/17 15:00 Dose: Not Given Dobutamine HCl/Dextrose (Dobutamine 500 Mg In D5w 250 Ml) 500 mg in 250 mls @ 3.304 mls/hr IV TITRATE [facility]; Protocol Sodium Chloride (Normal Saline) 250 mls @ 250 mls/hr IV ONETIME ONE Stop: 12/04/17 04:14 Last Admin: 12/04/17 03:00 Dose: 250 mls/hr Sodium Chloride (Normal Saline) 1,000 mls @ 75 mls/hr IV ASDIRECTED [facility] Last Admin: 12/04/17 06:47 Dose: 75 mls/hr Ceftriaxone Sodium 1,000 mg/ (Sodium Chloride) 50 mls @ 100 mls/hr IV Q24H [facility] Last Admin: 12/04/17 09:00 Dose: Not Given Lisinopril (Prinivil) 2.5 mg PO DAILY [facility] Last Admin: 12/02/17 08:41 Dose: 2.5 mg Mirtazapine (Remeron) 15 mg PO BEDTIME [facility] Ondansetron HCl (Zofran) 4 mg IVPUSH Q4H [facility] Last Admin: 12/02/17 13:37 Dose: Not Given Ondansetron HCl (Zofran) 4 mg IVPUSH Q8H PRN PRN Reason: Nausea - Exam Quality Assessment: Urine Catheter General: Oriented, Cooperative, No Acute Distress, Lethargic HEENT: Pupils Equal, Pupils Reactive. No: Scleral Icterus Neck: Supple Lungs: Normal Respiratory Effort, Decreased Breath Sounds, Rales Cardiovascular: Regular Rate, Regular Rhythm, Murmurs (2/6) GI/Abdominal Exam: Normal Bowel Sounds, Soft, Non-Tender Extremities: Normal Inspection, Non-Tender, No Pedal Edema, Normal Capillary Refill Peripheral Pulses: 1+: Posterior Tibial (L), Posterior Tibial (R), Dorsalis Pedis (L), Dorsalis Pedis (R), 2+: Carotid (L), Carotid (R), Radial (L), Radial (R) Skin: Cool Neurological: No New Focal Deficit, Cranial Nerves Intact, Other (Being the left upper lower extremity with over 5 strength in flexion-extension blade groover strength plantar and dorsiflexion of the foot much improved from yesterday. Facial droop is also improved on the right.) Psy/Mental Status: Normal Mood - Problem List & Annotations (1) Cardiogenic shock SNOMED Code(s): 19892596 Code(s): R57.0 - CARDIOGENIC SHOCK Status: Acute Current Visit: Yes (2) Septic shock SNOMED Code(s): 09197633 Code(s): A41.9 - SEPSIS, UNSPECIFIED ORGANISM; R65.21 - SEVERE SEPSIS WITH SEPTIC SHOCK Status: Acute Current Visit: Yes (3) CAP (community acquired pneumonia) SNOMED Code(s): 347453140 Code(s): J18.9 - PNEUMONIA, UNSPECIFIED ORGANISM Status: Acute Current Visit: Yes Qualifiers: Laterality: left (4) UTI (urinary tract infection), bacterial SNOMED Code(s): 612527056 Code(s): N39.0 - URINARY TRACT INFECTION, SITE NOT SPECIFIED; A49.9 - BACTERIAL INFECTION, UNSPECIFIED Status: Acute Current Visit: Yes (5) CVA (cerebral vascular accident) SNOMED Code(s): 877699129 Code(s): I63.9 - CEREBRAL INFARCTION, UNSPECIFIED Status: Acute Current Visit: Yes Onset Date: 12/03/17 Qualifiers: Precerebral and cerebral artery: middle cerebral artery Laterality of affected vessel: right Annotation/Comment:: Right sided ischemic due to hypoperfusion from cardiogenic shock. (6) Hypotension SNOMED Code(s): 10217075 Code(s): I95.9 - HYPOTENSION, UNSPECIFIED Status: Acute Priority: High Current Visit: Yes Onset Date: 12/03/17 (7) Palliative care status SNOMED Code(s): 544391079 Code(s): Z51.5 - ENCOUNTER FOR PALLIATIVE CARE Status: Acute Current Visit: Yes (8) Complaint of debility and malaise SNOMED Code(s): 075786955 Code(s): R53.81 - OTHER MALAISE Status: Acute Current Visit: Yes (9) DNI (do not intubate) SNOMED Code(s): 129719659 Code(s): Z78.9 - OTHER SPECIFIED HEALTH STATUS Status: Acute Current Visit: Yes (10) DNR (do not resuscitate) Status: Acute Current Visit: Yes (11) Muir catheter in place SNOMED Code(s): 867574068 Code(s): Z92.89 - PERSONAL HISTORY OF OTHER MEDICAL TREATMENT Status: Acute Current Visit: Yes Onset Date: 12/03/17 (12) Syncope and collapse SNOMED Code(s): 115457686 Code(s): R55 - SYNCOPE AND COLLAPSE Status: Acute Current Visit: Yes (13) History of CVA with residual deficit SNOMED Code(s): 887819497 Code(s): I69.30 - UNSPECIFIED SEQUELAE OF CEREBRAL INFARCTION Status: Acute Current Visit: Yes - Problem List Review Problem List Initiated/Reviewed/Updated: Yes - My Orders Last 24 Hours: My Active Orders 12/04/17 12:35 URINALYSIS W/MICROSCOPIC [UA W/MICROSCOPIC] [URIN] Routine 12/04/17 17:30 D5 1/2 NS w/ 10 mEq/L KCl 1,000 ml IV ASDIRECTED 12/04/17 21:00 Gabapentin [Neurontin] 300 mg PO BID - Assessment Assessment:: Please see above - Plan Plan:: Discussed with the patient and her daughter, improvement in neurologic and hemodynamic status with regards to improving strength in the left upper and lower extremity as well as acceptable blood pressures and urine output. We are not out of the water by any means, so we'll continue to monitor in ICU and continues to show improvement will consider moving to the medical surgical floor tomorrow. They both agree to this plan. Continue current cares. Anticipate hospital stay an additional ICU stay 24-48 hours pending response to the above medical management. Appropriate labs and studies will be ordered accordingly and intermittently as needed. The patient does agree to these evaluations, monitoring and interventions.
[2017-12-05] MEDS: D5 1/2 NS w/ 10 mEq/L KCl 1,000 ML IV SCH (11:36)
[2017-12-05] MEDS: Enoxaparin 30 MG/0.3 ML Syringe SUBCUT SCH (20:07)
[2017-12-05] MEDS: Amitriptyline 25 MG Tab PO SCH (20:07)
[2017-12-06] MEDS: D5 1/2 NS w/ 10 mEq/L KCl 1,000 ML IV SCH (06:35)
[2017-12-06] MEDS: Calcium Carbonate/Vitamin D3 1250 MG-200 Unit Tab PO SCH ×2 (10:17→20:59)
[2017-12-06] MEDS: Aspirin 325 MG Tab.EC PO SCH (10:17)
[2017-12-06] MEDS: Gabapentin 300 MG Cap PO SCH ×2 (10:18→20:59)
--- NOTE | 2017-12-06 12:59 | PCM.PN ---
- General Info Date of Service: 12/06/17 Subjective Update: Mrs. Lee is seen in the ICU bed. She is sitting up having her breakfast. Daughter is assisting with feeds. No coughing, choking or difficulty swallowing. She still feels quite weak but much improved in that she would like to sit in the chair and 'do something.' no repeat headache. Tells me has on had any chest pain, difficulty breathing, back pain, abdominal pain, pelvic pain, discomfort with the gruber in place, joint or leg pain, nausea or dizziness with head movement, cold heat or light sensitivity, worsening weakness of the upper or lower extremities, or confusion. has not been wearing her O2 nasal cannula as it bothers her upper lip and her sats have remained in the lower to mid 90s. She's had no events overnight on telemetry. Her blood pressures have remained greater than 100 systolic. Functional Status: (Gruber catheter draining clear yellow urine with excellent urine output. ). Denies: New Symptoms - Review of Systems Systems Review Comment:: See above - Patient Data Vitals - Most Recent: Last Vital Signs Temp 98.2 F 12/06/17 10:45 Pulse 66 12/06/17 07:00 Resp 16 12/06/17 07:00 BP 118/77 12/06/17 07:00 Pulse Ox 93 L 12/06/17 11:34 Weight - Most Recent: 56.654 kg I&O - Last 24 Hours: Intake & Output 12/05/17 12/06/17 22:59 06:59 Intake Total 407 Output Total 750 Balance -343 Lab Results Last 24 Hours: Laboratory Tests 11/30/17 11/30/17 11/30/17 Range/Units 09:15 09:15 09:15 WBC 7.6 (4.5-12.0) X10-3/uL RBC 4.23 (3.23-5.20) x10(6)uL Hgb 12.2 (11.5-15.5) g/dL Hct 36.7 (30.0-51.3) % MCV 86.7 (80-96) fL MCH 28.9 (27.7-33.6) pg MCHC 33.4 (32.2-35.4) g/dL RDW 12.5 (11.5-15.5) % Plt Count 198 (125-369) X10(3)uL MPV 8.4 (7.4-10.4) fL Neut % (Auto) 74.3 (46-82) % Lymph % (Auto) 14.2 (13-37) % [place] % (Auto) 10.7 (4-12) % Eos % (Auto) 0 L (1.0-5.0) % Baso % (Auto) 0 (0-2) % Neut # (Auto) 5.7 (1.6-8.3) # Lymph # (Auto) 1.1 (0.6-5.0) # [place] # (Auto) 0.8 (0.0-1.3) # Eos # (Auto) 0.0 (0.0-0.8) # Baso # (Auto) 0.0 (0.0-0.2) # Sodium 141 (135-145) mmol/L Potassium 4.2 (3.5-5.3) mmol/L Chloride 106 (100-110) mmol/L Carbon Dioxide 24 (21-32) mmol/L BUN 22 H (7-18) mg/dL Creatinine 1.5 H (0.55-1.02) mg/dL Est Cr Clr Drug Dosing TNP Estimated GFR (MDRD) 33 L (>60) BUN/Creatinine Ratio 14.7 (9-20) Glucose 140 H (80-116) mg/dL Lactic Acid (0.4-2.2) mmol/L Calcium 9.0 (8.6-10.2) mg/dL Total Bilirubin 0.5 (0.1-1.3) mg/dL AST 21 (5-25) IU/L ALT 17 (12-36) U/L Alkaline Phosphatase 79 (56-112) IU/L Troponin I < 0.017 L (<0.017-0.056) ng/mL C-Reactive Protein (0.5-0.9) mg/dL NT-Pro-B Natriuret Pep (<=450) pg/mL Total Protein 6.4 (6.0-8.0) g/dL Albumin 3.0 L (3.2-4.6) g/dL Globulin 3.4 g/dL Albumin/Globulin Ratio 0.9 Urine Color (YELLOW) Urine Appearance (CLEAR) Urine pH (5.0-6.5) Ur Specific [place] (1.010-1.025) Urine Protein (NEGATIVE) mg/dL Urine Glucose (UA) (NEGATIVE) mg/dL Urine Ketones (NEGATIVE) mg/dL Urine Occult Blood (NEGATIVE) Urine Nitrite (NEGATIVE) Urine Bilirubin (NEGATIVE) Urine Urobilinogen (NEGATIVE) mg/dL Ur Leukocyte Esterase (NEGATIVE) Urine RBC (0) Urine WBC (0) Ur Squamous Epith Cells (NS,R,O) Urine Bacteria (NS) Hyaline Casts (NS) 11/30/17 12/02/17 12/02/17 Range/Units 17:10 20:30 20:30 WBC 4.7 (4.5-12.0) X10-3/uL RBC 4.65 (3.23-5.20) x10(6)uL Hgb 13.1 (11.5-15.5) g/dL Hct 40.0 (30.0-51.3) % MCV 86.0 (80-96) fL MCH 28.1 (27.7-33.6) pg MCHC 32.7 (32.2-35.4) g/dL RDW 12.9 (11.5-15.5) % Plt Count 194 (125-369) X10(3)uL MPV 8.3 (7.4-10.4) fL Neut % (Auto) 66.9 (46-82) % Lymph % (Auto) 21.2 (13-37) % [place] % (Auto) 11.2 (4-12) % Eos % (Auto) 0 L (1.0-5.0) % Baso % (Auto) 1 (0-2) % Neut # (Auto) 3.2 (1.6-8.3) # Lymph # (Auto) 1.0 (0.6-5.0) # [place] # (Auto) 0.5 (0.0-1.3) # Eos # (Auto) 0.0 (0.0-0.8) # Baso # (Auto) 0.0 (0.0-0.2) # Sodium 134 L (135-145) mmol/L Potassium 4.0 (3.5-5.3) mmol/L Chloride 99 L D (100-110) mmol/L Carbon Dioxide 27 (21-32) mmol/L BUN 19 H (7-18) mg/dL Creatinine 1.1 H (0.55-1.02) mg/dL Est Cr Clr Drug Dosing 30.53 Estimated GFR (MDRD) 47 L (>60) BUN/Creatinine Ratio 17.3 (9-20) Glucose 98 (80-116) mg/dL Lactic Acid (0.4-2.2) mmol/L Calcium 9.4 (8.6-10.2) mg/dL Total Bilirubin (0.1-1.3) mg/dL AST (5-25) IU/L ALT (12-36) U/L Alkaline Phosphatase (56-112) IU/L Troponin I (<0.017-0.056) ng/mL C-Reactive Protein (0.5-0.9) mg/dL NT-Pro-B Natriuret Pep (<=450) pg/mL Total Protein (6.0-8.0) g/dL Albumin (3.2-4.6) g/dL Globulin g/dL Albumin/Globulin Ratio Urine Color Yellow (YELLOW) Urine Appearance Slightly cloudy (CLEAR) Urine pH 6.5 (5.0-6.5) Ur Specific [place] 1.015 (1.010-1.025) Urine Protein Negative (NEGATIVE) mg/dL Urine Glucose (UA) Normal (NEGATIVE) mg/dL Urine Ketones Negative (NEGATIVE) mg/dL Urine Occult Blood Moderate H (NEGATIVE) Urine Nitrite Negative (NEGATIVE) Urine Bilirubin Negative (NEGATIVE) Urine Urobilinogen Normal (NEGATIVE) mg/dL Ur Leukocyte Esterase Large H (NEGATIVE) Urine RBC 10-20 H (0) Urine WBC 40-50 H (0) Ur Squamous Epith Cells Few H (NS,R,O) Urine Bacteria Many H (NS) Hyaline Casts Few H (NS) 18 18 12/03/17 Range/Units 20:30 12:45 12:45 WBC 4.0 L (4.5-12.0) X10-3/uL RBC 4.08 (3.23-5.20) x10(6)uL Hgb 11.7 (11.5-15.5) g/dL Hct 35.4 (30.0-51.3) % MCV 86.7 (80-96) fL MCH 28.8 (27.7-33.6) pg MCHC 33.2 (32.2-35.4) g/dL RDW 12.6 (11.5-15.5) % Plt Count 144 (125-369) X10(3)uL MPV 8.3 (7.4-10.4) fL Neut % (Auto) 51.5 (46-82) % Lymph % (Auto) 33.8 (13-37) % [place] % (Auto) 13.7 H (4-12) % Eos % (Auto) 0 L (1.0-5.0) % Baso % (Auto) 1 (0-2) % Neut # (Auto) 2.0 (1.6-8.3) # Lymph # (Auto) 1.4 (0.6-5.0) # [place] # (Auto) 0.6 (0.0-1.3) # Eos # (Auto) 0.0 (0.0-0.8) # Baso # (Auto) 0.0 (0.0-0.2) # Sodium 135 (135-145) mmol/L Potassium 3.7 (3.5-5.3) mmol/L Chloride 103 (100-110) mmol/L Carbon Dioxide 24 (21-32) mmol/L BUN 27 H (7-18) mg/dL Creatinine 1.4 H (0.55-1.02) mg/dL Est Cr Clr Drug Dosing 23.99 Estimated GFR (MDRD) 35 L (>60) BUN/Creatinine Ratio 19.3 (9-20) Glucose 100 (80-116) mg/dL Lactic Acid (0.4-2.2) mmol/L Calcium 8.8 (8.6-10.2) mg/dL Total Bilirubin (0.1-1.3) mg/dL AST (5-25) IU/L ALT (12-36) U/L Alkaline Phosphatase (56-112) IU/L Troponin I (<0.017-0.056) ng/mL C-Reactive Protein 4.5 H* (0.5-0.9) mg/dL NT-Pro-B Natriuret Pep (<=450) pg/mL Total Protein (6.0-8.0) g/dL Albumin (3.2-4.6) g/dL Globulin g/dL Albumin/Globulin Ratio Urine Color (YELLOW) Urine Appearance (CLEAR) Urine pH (5.0-6.5) Ur Specific [place] (1.010-1.025) Urine Protein (NEGATIVE) mg/dL Urine Glucose (UA) (NEGATIVE) mg/dL Urine Ketones (NEGATIVE) mg/dL Urine Occult Blood (NEGATIVE) Urine Nitrite (NEGATIVE) Urine Bilirubin (NEGATIVE) Urine Urobilinogen (NEGATIVE) mg/dL Ur Leukocyte Esterase (NEGATIVE) Urine RBC (0) Urine WBC (0) Ur Squamous Epith Cells (NS,R,O) Urine Bacteria (NS) Hyaline Casts (NS) 12/03/17 12/03/17 12/04/17 Range/Units 12:45 12:45 09:00 WBC 4.9 (4.5-12.0) X10-3/uL RBC 4.19 (3.23-5.20) x10(6)uL Hgb 12.2 (11.5-15.5) g/dL Hct 36.2 (30.0-51.3) % MCV 86.3 (80-96) fL MCH 29.0 (27.7-33.6) pg MCHC 33.6 (32.2-35.4) g/dL RDW 12.7 (11.5-15.5) % Plt Count 125 (125-369) X10(3)uL MPV 8.6 (7.4-10.4) fL Neut % (Auto) 52.8 (46-82) % Lymph % (Auto) 35.2 (13-37) % [place] % (Auto) 11.2 (4-12) % Eos % (Auto) 0 L (1.0-5.0) % Baso % (Auto) 1 (0-2) % Neut # (Auto) 2.7 (1.6-8.3) # Lymph # (Auto) 1.7 (0.6-5.0) # [place] # (Auto) 0.5 (0.0-1.3) # Eos # (Auto) 0.0 (0.0-0.8) # Baso # (Auto) 0.0 (0.0-0.2) # Sodium (135-145) mmol/L Potassium (3.5-5.3) mmol/L Chloride (100-110) mmol/L Carbon Dioxide (21-32) mmol/L BUN (7-18) mg/dL Creatinine (0.55-1.02) mg/dL Est Cr Clr Drug Dosing Estimated GFR (MDRD) (>60) BUN/Creatinine Ratio (9-20) Glucose (80-116) mg/dL Lactic Acid (0.4-2.2) mmol/L Calcium (8.6-10.2) mg/dL Total Bilirubin (0.1-1.3) mg/dL AST (5-25) IU/L ALT (12-36) U/L Alkaline Phosphatase (56-112) IU/L Troponin I 0.064 H (<0.017-0.056) ng/mL C-Reactive Protein (0.5-0.9) mg/dL NT-Pro-B Natriuret Pep 2231 H* (<=450) pg/mL Total Protein (6.0-8.0) g/dL Albumin (3.2-4.6) g/dL Globulin g/dL Albumin/Globulin Ratio Urine Color (YELLOW) Urine Appearance (CLEAR) Urine pH (5.0-6.5) Ur Specific [place] (1.010-1.025) Urine Protein (NEGATIVE) mg/dL Urine Glucose (UA) (NEGATIVE) mg/dL Urine Ketones (NEGATIVE) mg/dL Urine Occult Blood (NEGATIVE) Urine Nitrite (NEGATIVE) Urine Bilirubin (NEGATIVE) Urine Urobilinogen (NEGATIVE) mg/dL Ur Leukocyte Esterase (NEGATIVE) Urine RBC (0) Urine WBC (0) Ur Squamous Epith Cells (NS,R,O) Urine Bacteria (NS) Hyaline Casts (NS) 12/04/17 12/04/17 12/04/17 Range/Units 09:00 09:00 09:00 WBC (4.5-12.0) X10-3/uL RBC (3.23-5.20) x10(6)uL Hgb (11.5-15.5) g/dL Hct (30.0-51.3) % MCV (80-96) fL MCH (27.7-33.6) pg MCHC (32.2-35.4) g/dL RDW (11.5-15.5) % Plt Count (125-369) X10(3)uL MPV (7.4-10.4) fL Neut % (Auto) (46-82) % Lymph % (Auto) (13-37) % [place] % (Auto) (4-12) % Eos % (Auto) (1.0-5.0) % Baso % (Auto) (0-2) % Neut # (Auto) (1.6-8.3) # Lymph # (Auto) (0.6-5.0) # [place] # (Auto) (0.0-1.3) # Eos # (Auto) (0.0-0.8) # Baso # (Auto) (0.0-0.2) # Sodium 136 (135-145) mmol/L Potassium 3.7 (3.5-5.3) mmol/L Chloride 103 (100-110) mmol/L Carbon Dioxide 23 (21-32) mmol/L BUN 26 H (7-18) mg/dL Creatinine 1.2 H (0.55-1.02) mg/dL Est Cr Clr Drug Dosing 27.98 Estimated GFR (MDRD) 42 L (>60) BUN/Creatinine Ratio 21.7 H (9-20) Glucose 93 (80-116) mg/dL Lactic Acid 0.7 (0.4-2.2) mmol/L Calcium 8.5 L (8.6-10.2) mg/dL Total Bilirubin 0.2 (0.1-1.3) mg/dL AST 26 H D (5-25) IU/L ALT 15 D (12-36) U/L Alkaline Phosphatase 61 (56-112) IU/L Troponin I 0.045 (<0.017-0.056) ng/mL C-Reactive Protein 3.8 H* (0.5-0.9) mg/dL NT-Pro-B Natriuret Pep (<=450) pg/mL Total Protein 5.8 L (6.0-8.0) g/dL Albumin 2.6 L (3.2-4.6) g/dL Globulin 3.2 g/dL Albumin/Globulin Ratio 0.8 Urine Color (YELLOW) Urine Appearance (CLEAR) Urine pH (5.0-6.5) Ur Specific [place] (1.010-1.025) Urine Protein (NEGATIVE) mg/dL Urine Glucose (UA) (NEGATIVE) mg/dL Urine Ketones (NEGATIVE) mg/dL Urine Occult Blood (NEGATIVE) Urine Nitrite (NEGATIVE) Urine Bilirubin (NEGATIVE) Urine Urobilinogen (NEGATIVE) mg/dL Ur Leukocyte Esterase (NEGATIVE) Urine RBC (0) Urine WBC (0) Ur Squamous Epith Cells (NS,R,O) Urine Bacteria (NS) Hyaline Casts (NS) 12/04/17 Range/Units 12:35 WBC (4.5-12.0) X10-3/uL RBC (3.23-5.20) x10(6)uL Hgb (11.5-15.5) g/dL Hct (30.0-51.3) % MCV (80-96) fL MCH (27.7-33.6) pg MCHC (32.2-35.4) g/dL RDW (11.5-15.5) % Plt Count (125-369) X10(3)uL MPV (7.4-10.4) fL Neut % (Auto) (46-82) % Lymph % (Auto) (13-37) % [place] % (Auto) (4-12) % Eos % (Auto) (1.0-5.0) % Baso % (Auto) (0-2) % Neut # (Auto) (1.6-8.3) # Lymph # (Auto) (0.6-5.0) # [place] # (Auto) (0.0-1.3) # Eos # (Auto) (0.0-0.8) # Baso # (Auto) (0.0-0.2) # Sodium (135-145) mmol/L Potassium (3.5-5.3) mmol/L Chloride (100-110) mmol/L Carbon Dioxide (21-32) mmol/L BUN (7-18) mg/dL Creatinine (0.55-1.02) mg/dL Est Cr Clr Drug Dosing Estimated GFR (MDRD) (>60) BUN/Creatinine Ratio (9-20) Glucose (80-116) mg/dL Lactic Acid (0.4-2.2) mmol/L Calcium (8.6-10.2) mg/dL Total Bilirubin (0.1-1.3) mg/dL AST (5-25) IU/L ALT (12-36) U/L Alkaline Phosphatase (56-112) IU/L Troponin I (<0.017-0.056) ng/mL C-Reactive Protein (0.5-0.9) mg/dL NT-Pro-B Natriuret Pep (<=450) pg/mL Total Protein (6.0-8.0) g/dL Albumin (3.2-4.6) g/dL Globulin g/dL Albumin/Globulin Ratio Urine Color Yellow (YELLOW) Urine Appearance Clear (CLEAR) Urine pH 5.0 (5.0-6.5) Ur Specific [place] 1.010 (1.010-1.025) Urine Protein Negative (NEGATIVE) mg/dL Urine Glucose (UA) Normal (NEGATIVE) mg/dL Urine Ketones Negative (NEGATIVE) mg/dL Urine Occult Blood Moderate H (NEGATIVE) Urine Nitrite Negative (NEGATIVE) Urine Bilirubin Negative (NEGATIVE) Urine Urobilinogen Normal (NEGATIVE) mg/dL Ur Leukocyte Esterase Negative (NEGATIVE) Urine RBC 5-10 (0) Urine WBC 0-5 (0) Ur Squamous Epith Cells Occasional (NS,R,O) Urine Bacteria Few H (NS) Hyaline Casts (NS) Aiden Results Last 24 Hours: Microbiology 12/02/17 20:35 Aerobic Blood Culture - Preliminary Blood - Venous - Lab Draw NO GROWTH AFTER 3 DAYS Anaerobic Blood Culture - Preliminary NO GROWTH AFTER 3 DAYS 12/02/17 20:30 Aerobic Blood Culture - Preliminary Blood - Venous NO GROWTH AFTER 3 DAYS Anaerobic Blood Culture - Preliminary NO GROWTH AFTER 3 DAYS Med Orders - Current: Current Medications Acetaminophen (Tylenol) 650 mg PO Q4H PRN PRN Reason: fever > 101 Last Admin: 12/04/17 20:03 Dose: 650 mg Amitriptyline HCl (Elavil) 25 mg PO BEDTIME [facility] Last Admin: 12/05/17 20:07 Dose: Not Given Artificial Tears (Artificial Tears) 0 gm EYERT DAILY PRN PRN Reason: Dry Eyes Aspirin (Ecotrin) 325 mg PO DAILY [facility] Last Admin: 12/06/17 10:17 Dose: 325 mg Calcium Carbonate (Calcium Carbonate/Vitamin D 1250 Mg-200 Unit) 1 tab PO BID [facility] Last Admin: 12/06/17 10:17 Dose: 1 tab Donepezil HCl (Aricept) 5 mg PO BEDTIME [facility] Last Admin: 12/05/17 20:08 Dose: Not Given Enoxaparin Sodium (Lovenox) 30 mg SUBCUT Q24H [facility] Last Admin: 12/05/17 20:07 Dose: 30 mg Gabapentin (Neurontin) 300 mg PO BID [facility] Last Admin: 12/06/17 10:18 Dose: 300 mg Levofloxacin/Dextrose 750 mg/ (Premix) 150 mls @ 100 mls/hr IV Q48H [facility] Stop: 12/07/17 20:01 Last Admin: 12/04/17 19:59 Dose: 100 mls/hr Dobutamine HCl/Dextrose (Dobutamine In D5w 250 Mg/250 Ml) 250 mg in 250 mls @ 6.749 mls/hr IV TITRATE [facility]; Protocol Last Titration: 12/04/17 09:44 Dose: 0 mcg/kg/min, 0 mls/hr Dextrose/Sodium Chloride (Dextrose 5%-1/2 Ns) 1,000 mls @ 75 mls/hr IV ASDIRECTED [facility] Nitroglycerin (Nitrostat) 0.4 mg SL Q5M PRN PRN Reason: Chest Pain Sodium Chloride (Saline Flush) 10 ml FLUSH ASDIRECTED PRN PRN Reason: Keep Vein Open Last Admin: 12/04/17 03:00 Dose: 10 ml Discontinued Medications Calcium Carbonate/Glycine (Tums) 1,000 mg PO ONETIME ONE Stop: 12/01/17 16:14 Last Admin: 12/01/17 16:42 Dose: 1,000 mg Gabapentin (Neurontin) 600 mg PO BEDTIME [facility] Last Admin: 12/02/17 20:40 Dose: 600 mg Gabapentin (Neurontin) 300 mg PO BEDTIME [facility] Last Admin: 12/03/17 21:21 Dose: Not Given Sodium Chloride (Normal Saline) 1,000 mls @ 999 mls/hr IV ASDIRECTED [facility] Last Admin: 11/30/17 09:15 Dose: 999 mls/hr Sodium Chloride (Normal Saline) 500 mls @ 999 mls/hr IV ASDIRECTED [facility] Last Admin: 11/30/17 10:25 Dose: 999 mls/hr Sodium Chloride (Normal Saline) 1,000 mls @ 75 mls/hr IV ASDIRECTED [facility] Last Admin: 12/01/17 19:03 Dose: 75 mls/hr Ampicillin Sodium/Sulbactam (Sodium 1.5 gm/ Sodium Chloride) 50 mls @ 100 mls/ hr IV Q12H [facility] Last Admin: 12/03/17 02:22 Dose: 100 mls/hr Sodium Chloride (Normal Saline) 1,000 mls @ 999 mls/hr IV ASDIRECTED [facility] Stop: 12/03/17 06:30 Last Admin: 12/03/17 05:25 Dose: 500 mls/hr Sodium Chloride (Normal Saline) 1,000 mls @ 250 mls/hr IV ASDIRECTED [facility] Stop: 12/03/17 18:29 Last Admin: 12/03/17 15:00 Dose: Not Given Dobutamine HCl/Dextrose (Dobutamine 500 Mg In D5w 250 Ml) 500 mg in 250 mls @ 3.304 mls/hr IV TITRATE [facility]; Protocol Sodium Chloride (Normal Saline) 250 mls @ 250 mls/hr IV ONETIME ONE Stop: 12/04/17 04:14 Last Admin: 12/04/17 03:00 Dose: 250 mls/hr Sodium Chloride (Normal Saline) 1,000 mls @ 75 mls/hr IV ASDIRECTED [facility] Last Admin: 12/04/17 06:47 Dose: 75 mls/hr Ceftriaxone Sodium 1,000 mg/ (Sodium Chloride) 50 mls @ 100 mls/hr IV Q24H [facility] Last Admin: 12/04/17 09:00 Dose: Not Given Potassium Chloride/Dextrose/Sod Cl (D5 1/2 Ns W/ 10 Meq/L Kcl) 1,000 mls @ 50 mls/hr IV ASDIRECTED [facility] Last Admin: 12/06/17 06:35 Dose: 50 mls/hr Lisinopril (Prinivil) 2.5 mg PO DAILY [facility] Last Admin: 12/02/17 08:41 Dose: 2.5 mg Mirtazapine (Remeron) 15 mg PO BEDTIME [facility] Ondansetron HCl (Zofran) 4 mg IVPUSH Q4H [facility] Last Admin: 12/02/17 13:37 Dose: Not Given Ondansetron HCl (Zofran) 4 mg IVPUSH Q8H PRN PRN Reason: Nausea - Exam Physical Findings Comments:: Quality Assessment: Urine Catheter General: Oriented, Cooperative, No Acute Distress, much more alert, smiles and makes subtle jokes HEENT: Pupils Equal, Pupils Reactive. No: Scleral Icterus Neck: Supple Lungs: Normal Respiratory Effort, Decreased Breath Sounds, Rales at the right and left lung base Cardiovascular: Regular Rate, Regular Rhythm, Murmurs (2/6) GI/Abdominal Exam: Normal Bowel Sounds, Soft, Non-Tender Extremities: Normal Inspection, Non-Tender, No Pedal Edema, Normal Capillary Refill Peripheral Pulses: 1+: Posterior Tibial (L), Posterior Tibial (R), Dorsalis Pedis (L), Dorsalis Pedis (R), 2+: Carotid (L), Carotid (R), Radial (L), Radial (R) Skin: Cool Neurological: No New Focal Deficit, Cranial Nerves Intact, moving the left upper and lower extremity with over 4/5 strength in flexion-extension clerk entry level strength plantar and dorsiflexion of the foot which is continuing to improve. Facial droop is also improved on the right to almost not noticeable.) Psy/Mental Status: Normal Mood, pleasant - Problem List Review Problem List Initiated/Reviewed/Updated: Yes - My Orders Last 24 Hours: My Active Orders 12/06/17 12:42 Patient Status Manage Transfer [TRANSFER] Routine 12/06/17 12:55 COMPREHENSIVE METABOLIC PN,CMP [CHEM] Routine 12/06/17 12:56 C-REACTIVE PROTEIN [CHEM] Routine CBC WITH AUTO DIFF [HEME] Routine PRO B-TYPE NATRIUR PEPT,BNPPRO [CHEM] Routine EKG 12 Lead [EK] Routine 12/06/17 12:57 EKG Documentation Completion [RC] ASDIRECTED 12/06/17 13:00 Dextrose 5%-0.45% NaCl [Dextrose 5%-1/2 NS] 1,000 ml IV ASDIRECTED - Assessment Assessment:: - Problem List & Annotations (1) Cardiogenic shock SNOMED Code(s): 64038527 Code(s): R57.0 - CARDIOGENIC SHOCK Status: Acute Current Visit: Yes (2) Septic shock SNOMED Code(s): 58913178 Code(s): A41.9 - SEPSIS, UNSPECIFIED ORGANISM; R65.21 - SEVERE SEPSIS WITH SEPTIC SHOCK Status: Acute Current Visit: Yes (3) CAP (community acquired pneumonia) SNOMED Code(s): 173429438 Code(s): J18.9 - PNEUMONIA, UNSPECIFIED ORGANISM Status: Acute Current Visit: Yes Qualifiers: Laterality: left (4) UTI (urinary tract infection), bacterial SNOMED Code(s): 072623323 Code(s): N39.0 - URINARY TRACT INFECTION, SITE NOT SPECIFIED; A49.9 - BACTERIAL INFECTION, UNSPECIFIED Status: Acute Current Visit: Yes (5) CVA (cerebral vascular accident) SNOMED Code(s): 242002012 Code(s): I63.9 - CEREBRAL INFARCTION, UNSPECIFIED Status: Acute Current Visit: Yes Onset Date: 12/03/17 Qualifiers: Precerebral and cerebral artery: middle cerebral artery Laterality of affected vessel: right Annotation/Comment:: Right sided ischemic due to hypoperfusion from cardiogenic shock. (6) Hypotension SNOMED Code(s): 02551505 Code(s): I95.9 - HYPOTENSION, UNSPECIFIED Status: Acute Priority: High Current Visit: Yes Onset Date: 12/03/17 (7) Palliative care status SNOMED Code(s): 392909134 Code(s): Z51.5 - ENCOUNTER FOR PALLIATIVE CARE Status: Acute Current Visit: Yes (8) Complaint of debility and malaise SNOMED Code(s): 672561819 Code(s): R53.81 - OTHER MALAISE Status: Acute Current Visit: Yes (9) DNI (do not intubate) SNOMED Code(s): 569054452 Code(s): Z78.9 - OTHER SPECIFIED HEALTH STATUS Status: Acute Current Visit: Yes (10) DNR (do not resuscitate) Status: Acute Current Visit: Yes (11) Gruber catheter in place SNOMED Code(s): 519290127 Code(s): Z92.89 - PERSONAL HISTORY OF OTHER MEDICAL TREATMENT Status: Acute Current Visit: Yes Onset Date: 12/03/17 (12) Syncope and collapse SNOMED Code(s): 212077874 Code(s): R55 - SYNCOPE AND COLLAPSE Status: Acute Current Visit: Yes (13) History of CVA with residual deficit SNOMED Code(s): 470554174 Code(s): I69.30 - UNSPECIFIED SEQUELAE OF CEREBRAL INFARCTION Status: Acute Current Visit: Yes - Plan Plan:: Discussed with the patient, her daughter and grandson who is also present the continued improvement in neurologic and hemodynamic status with regards to improving strength in the left upper and lower extremity as well as acceptable blood pressures and urine output. We are not out of the water by any means moving to the medical surgical floor is appropriate at this time. Patient does not wish to have any further labs thus prior labs were not drawn. We'll also discontinue telemetry at this time as well. Continue to keep the Gruber catheter as we get up and moving around more. Improvement in her renal perfusion showed her body is diuresing appropriately. Will remove as soon as possible. All other medical therapies will be continued. PT/OT will work with her as her strength improves. Discharge planning will begin with recommendation for swing bed placement versus intermediate placement upon discharge. I do not believe she will be a candidate to go back to [facility] which is where she was living prior to admission. I discussed this with her daughter and grandson who both agree with this as well. There are already looking into intermediate placement and working with neonatal social worker regarding this. Anticipate hospital stay an additional 48-72 hours pending response to the above medical management/therapies. The patient does agree to these evaluations , monitoring and interventions.
[2017-12-06] MEDS: Dextrose 5%-0.45% NaCl 1,000 ML IV SCH (13:34)
[2017-12-06] MEDS: Levofloxacin/Dextrose 5%-Water 750 MG in Premix Bag 1 BAG IV SCH (20:56)
[2017-12-06] MEDS: Enoxaparin 30 MG/0.3 ML Syringe SUBCUT SCH (20:57)
[2017-12-06] MEDS: Amitriptyline 25 MG Tab PO SCH (20:59)
[2017-12-06] MEDS: Acetaminophen 325 MG Tab PO PRN (23:45)
[2017-12-07] MEDS: Dextrose 5%-0.45% NaCl 1,000 ML IV SCH (05:07)
[2017-12-07] MEDS: Acetaminophen 325 MG Tab PO PRN (06:11)
[2017-12-07] MEDS: Aspirin 325 MG Tab.EC PO SCH (08:43)
[2017-12-07] MEDS: Calcium Carbonate/Vitamin D3 1250 MG-200 Unit Tab PO SCH ×2 (08:43→20:39)
[2017-12-07] MEDS: Gabapentin 300 MG Cap PO SCH ×2 (08:43→20:39)
[2017-12-07] MEDS: Sodium Chloride 0.9% 10 ML Syringe FLUSH PRN (13:30)
--- NOTE | 2017-12-07 17:26 | PCM.PN ---
- General Info Date of Service: 12/07/17 Subjective Update: Mrs. Lee is seen on medical floor. feeling much better with regards to breathing and strength. minimal coughing, no choking or difficulty swallowing. She still feels quite weak but much improved in that she would like to sit in the chair and 'do something.' no repeat headache. Tells me has had no chest pain, difficulty breathing, back pain, abdominal pain, pelvic pain, would like gruber out, no joint or leg pain, nausea or dizziness with head movement, cold heat or light sensitivity, worsening weakness of the upper or lower extremities , or confusion. has not been wearing her O2 nasal cannula as it bothers her upper lip and her sats have remained in the lower to mid 90s. She's had no events overnight. Her blood pressures have remained greater than 100 systolic. . she has almost completed her course of levaquin. Functional Status: Reports: Ambulating, Incentive Spirometry - Review of Systems Systems Review Comment:: see hpi - Patient Data Vitals - Most Recent: Last Vital Signs Temp 97.8 F 12/07/17 12:00 Pulse 84 12/07/17 12:00 Resp 16 12/07/17 12:00 BP 142/86 H 12/07/17 12:00 Pulse Ox 98 12/07/17 12:00 Weight - Most Recent: 55.656 kg I&O - Last 24 Hours: Intake & Output 12/07/17 12/07/17 06:59 14:59 Intake Total 570 950 Output Total 1100 Balance -530 950 Med Orders - Current: Current Medications Acetaminophen (Tylenol) 650 mg PO Q4H PRN PRN Reason: fever > 101 Last Admin: 12/07/17 06:11 Dose: 650 mg Amitriptyline HCl (Elavil) 25 mg PO BEDTIME [facility] Last Admin: 12/06/17 20:59 Dose: 25 mg Aspirin (Ecotrin) 325 mg PO DAILY [facility] Last Admin: 12/07/17 08:43 Dose: 325 mg Calcium Carbonate (Calcium Carbonate/Vitamin D 1250 Mg-200 Unit) 1 tab PO BID [facility] Last Admin: 12/07/17 08:43 Dose: 1 tab Donepezil HCl (Aricept) 5 mg PO BEDTIME [facility] Last Admin: 12/06/17 20:59 Dose: 5 mg Enoxaparin Sodium (Lovenox) 30 mg SUBCUT Q24H [facility] Last Admin: 12/06/17 20:57 Dose: 30 mg Gabapentin (Neurontin) 300 mg PO BID [facility] Last Admin: 12/07/17 08:43 Dose: 300 mg Levofloxacin/Dextrose 750 mg/ (Premix) 150 mls @ 100 mls/hr IV Q48H [facility] Stop: 12/07/17 20:01 Last Admin: 12/06/17 20:56 Dose: 100 mls/hr Nitroglycerin (Nitrostat) 0.4 mg SL Q5M PRN PRN Reason: Chest Pain Sodium Chloride (Saline Flush) 10 ml FLUSH ASDIRECTED PRN PRN Reason: Keep Vein Open Last Admin: 12/07/17 13:30 Dose: 10 ml Discontinued Medications Amoxicillin/Clavulanate Potassium (Augmentin 500 Mg\125 Mg) 1 tab PO Q12H [facility] Artificial Tears (Artificial Tears) 0 gm EYERT DAILY PRN PRN Reason: Dry Eyes Calcium Carbonate/Glycine (Tums) 1,000 mg PO ONETIME ONE Stop: 12/01/17 16:14 Last Admin: 12/01/17 16:42 Dose: 1,000 mg Gabapentin (Neurontin) 600 mg PO BEDTIME [facility] Last Admin: 12/02/17 20:40 Dose: 600 mg Gabapentin (Neurontin) 300 mg PO BEDTIME [facility] Last Admin: 12/03/17 21:21 Dose: Not Given Sodium Chloride (Normal Saline) 1,000 mls @ 999 mls/hr IV ASDIRECTED [facility] Last Admin: 11/30/17 09:15 Dose: 999 mls/hr Sodium Chloride (Normal Saline) 500 mls @ 999 mls/hr IV ASDIRECTED [facility] Last Admin: 11/30/17 10:25 Dose: 999 mls/hr Sodium Chloride (Normal Saline) 1,000 mls @ 75 mls/hr IV ASDIRECTED [facility] Last Admin: 12/01/17 19:03 Dose: 75 mls/hr Ampicillin Sodium/Sulbactam (Sodium 1.5 gm/ Sodium Chloride) 50 mls @ 100 mls/ hr IV Q12H [facility] Last Admin: 12/03/17 02:22 Dose: 100 mls/hr Sodium Chloride (Normal Saline) 1,000 mls @ 999 mls/hr IV ASDIRECTED [facility] Stop: 12/03/17 06:30 Last Admin: 12/03/17 05:25 Dose: 500 mls/hr Sodium Chloride (Normal Saline) 1,000 mls @ 250 mls/hr IV ASDIRECTED [facility] Stop: 12/03/17 18:29 Last Admin: 12/03/17 15:00 Dose: Not Given Dobutamine HCl/Dextrose (Dobutamine 500 Mg In D5w 250 Ml) 500 mg in 250 mls @ 3.304 mls/hr IV TITRATE [facility]; Protocol Sodium Chloride (Normal Saline) 250 mls @ 250 mls/hr IV ONETIME ONE Stop: 12/04/17 04:14 Last Admin: 12/04/17 03:00 Dose: 250 mls/hr Sodium Chloride (Normal Saline) 1,000 mls @ 75 mls/hr IV ASDIRECTED [facility] Last Admin: 12/04/17 06:47 Dose: 75 mls/hr Dobutamine HCl/Dextrose (Dobutamine In D5w 250 Mg/250 Ml) 250 mg in 250 mls @ 6.749 mls/hr IV TITRATE [facility]; Protocol Last Titration: 12/04/17 09:44 Dose: 0 mcg/kg/min, 0 mls/hr Ceftriaxone Sodium 1,000 mg/ (Sodium Chloride) 50 mls @ 100 mls/hr IV Q24H [facility] Last Admin: 12/04/17 09:00 Dose: Not Given Potassium Chloride/Dextrose/Sod Cl (D5 1/2 Ns W/ 10 Meq/L Kcl) 1,000 mls @ 50 mls/hr IV ASDIRECTED [facility] Last Admin: 12/06/17 06:35 Dose: 50 mls/hr Dextrose/Sodium Chloride (Dextrose 5%-1/2 Ns) 1,000 mls @ 75 mls/hr IV ASDIRECTED [facility] Last Admin: 12/07/17 05:07 Dose: 75 mls/hr Lisinopril (Prinivil) 2.5 mg PO DAILY [facility] Last Admin: 12/02/17 08:41 Dose: 2.5 mg Mirtazapine (Remeron) 15 mg PO BEDTIME [facility] Ondansetron HCl (Zofran) 4 mg IVPUSH Q4H [facility] Last Admin: 12/02/17 13:37 Dose: Not Given Ondansetron HCl (Zofran) 4 mg IVPUSH Q8H PRN PRN Reason: Nausea - Exam Quality Assessment: Urine Catheter Physical Findings Comments:: General: Oriented, Cooperative, No Acute Distress, alert, smiles and makes subtle jokes HEENT: Pupils Equal, Pupils Reactive. No: Scleral Icterus Neck: Supple Lungs: Normal Respiratory Effort, Decreased Breath Sounds, Rales at the right and left lung base minimal Cardiovascular: Regular Rate, Regular Rhythm, Murmurs (2/6) GI/Abdominal Exam: Normal Bowel Sounds, Soft, Non-Tender Extremities: Normal Inspection, Non-Tender, No Pedal Edema, Normal Capillary Refill Peripheral Pulses: 1+: Posterior Tibial (L), Posterior Tibial (R), Dorsalis Pedis (L), Dorsalis Pedis (R), 2+: Carotid (L), Carotid (R), Radial (L), Radial (R) Skin: warm Neurological: No New Focal Deficit, Cranial Nerves Intact, moving the left upper and lower extremity with over 4/5 strength in flexion-extension nurse transition strength plantar and dorsiflexion of the foot which is continuing to improve. Facial droop is also improved on the right to almost not noticeable.) Psy/Mental Status: Normal Mood, pleasant - Problem List & Annotations (1) CAP (community acquired pneumonia) SNOMED Code(s): 234329106 Code(s): J18.9 - PNEUMONIA, UNSPECIFIED ORGANISM Status: Acute Current Visit: Yes Qualifiers: Laterality: left (2) CVA (cerebral vascular accident) SNOMED Code(s): 367526417 Code(s): I63.9 - CEREBRAL INFARCTION, UNSPECIFIED Status: Acute Current Visit: Yes Onset Date: 12/03/17 Qualifiers: Precerebral and cerebral artery: middle cerebral artery Laterality of affected vessel: right Annotation/Comment:: Right sided ischemic due to hypoperfusion from cardiogenic shock. (3) Cardiogenic shock SNOMED Code(s): 57286497 Code(s): R57.0 - CARDIOGENIC SHOCK Status: Acute Current Visit: Yes (4) Complaint of debility and malaise SNOMED Code(s): 790231032 Code(s): R53.81 - OTHER MALAISE Status: Acute Current Visit: Yes (5) DNI (do not intubate) SNOMED Code(s): 100296221 Code(s): Z78.9 - OTHER SPECIFIED HEALTH STATUS Status: Acute Current Visit: Yes (6) DNR (do not resuscitate) Status: Acute Current Visit: Yes (7) Gruber catheter in place SNOMED Code(s): 810384010 Code(s): Z92.89 - PERSONAL HISTORY OF OTHER MEDICAL TREATMENT Status: Acute Current Visit: Yes (8) History of CVA with residual deficit SNOMED Code(s): 275099405 Code(s): I69.30 - UNSPECIFIED SEQUELAE OF CEREBRAL INFARCTION Status: Acute Current Visit: Yes (9) Hypotension SNOMED Code(s): 22362353 Code(s): I95.9 - HYPOTENSION, UNSPECIFIED Status: Resolved Priority: High Current Visit: Yes Onset Date: 12/03/17 (10) Palliative care status SNOMED Code(s): 113238839 Code(s): Z51.5 - ENCOUNTER FOR PALLIATIVE CARE Status: Acute Current Visit: Yes (11) Septic shock SNOMED Code(s): 18339575 Code(s): A41.9 - SEPSIS, UNSPECIFIED ORGANISM; R65.21 - SEVERE SEPSIS WITH SEPTIC SHOCK Status: Resolved Current Visit: Yes (12) Syncope and collapse SNOMED Code(s): 733440887 Code(s): R55 - SYNCOPE AND COLLAPSE Status: Resolved Current Visit: Yes (13) UTI (urinary tract infection), bacterial SNOMED Code(s): 401004947 Code(s): N39.0 - URINARY TRACT INFECTION, SITE NOT SPECIFIED; A49.9 - BACTERIAL INFECTION, UNSPECIFIED Status: Resolved Current Visit: Yes - Problem List Review Problem List Initiated/Reviewed/Updated: Yes - My Orders Last 24 Hours: My Active Orders 12/07/17 10:50 Remove Gurber Catheter [Urinary Catheter Removal] [RC] Per Unit Routine 12/07/17 13:21 Convert IV to Saline Lock [OM.PC] Routine 12/07/17 Lunch Regular Diet [DIET] - Assessment Assessment:: see above. - Plan Plan:: remove Gruber catheter. start mirtazipine tonight for persistent poor appetite. dc amitriptyline. PT/OT continue. Discharge planning with recommendation for swing bed placement placement upon discharge. will see how she does with gruber out and pt/ot. I discussed this with her daughter. Anticipate hospital stay an additional 24-48 hours pending response to the above medical management/therapies. The patient does agree to these evaluations , monitoring and interventions however, declines any further lab studies.
[2017-12-07] MEDS: Enoxaparin 30 MG/0.3 ML Syringe SUBCUT SCH (20:39)
[2017-12-07] MEDS: Mirtazapine 15 MG Tab PO SCH (20:43)
--- NOTE | 2017-12-08 09:13 | PCM.DCSUM1 ---
Discharge Summary - Discharge Data Discharge Date: 12/08/17 Discharge Disposition: DC/Tfer W/I Hosp To Swing 61 Condition: Fair - Patient Summary/Data Consults: Consultations 12/01/17 10:16 Consult to Physical Therapy [PT Evaluation and Treatment] [CONS] Routine Please Evaluate and Treat. PT Reason for Consult: weakness an d recent fall This query below is only for informational purposes and is not editable. Admission Diagnosis/Problem: Syncope and collapse 12/01/17 10:21 Consult to Occupational Therapy [OT Evaluation and Treatment] [CONS] Routine Please Evaluate and Treat. OT Reason for Consult: wekaness recent fall This query below is only for informational purposes and is not editable. Admission Diagnosis/Problem: Syncope and collapse 12/08/17 09:11 Nutrition Reassessment/Plan, Adult [Consult to [facility]] [CONS] Routine Physician Instructions: Comment: Quantity: - Discharge Plan Prescriptions/Med Rec: Amoxicillin/Clavulanate K [Augmentin 500-125 MG] 1 tab PO Q12HR 5 Days tablet Home Medications: Home Meds Amitriptyline [Elavil] 25 mg PO BEDTIME 11/30/17 [History] Aspirin 325 mg PO DAILY 11/30/17 [History] Calcium Carbonate/Vitamin D3 [Calcium 500 + Vit D Caplet] 1 each PO BID [History] Donepezil HCl 5 mg PO BEDTIME 11/30/17 [History] Gabapentin [Neurontin] 600 mg PO BEDTIME 11/30/17 [History] Lisinopril 2.5 mg PO DAILY 11/30/17 [History] Amoxicillin/Clavulanate K [Augmentin 500-125 MG] 1 tab PO Q12HR 5 Days tablet 12/02/17 [Rx] Patient Handouts: Near-Syncope, [id number], Fall Prevention in Hospitals, Adult, Venous Thromboembolism Prevention Referrals: PCP,None [Primary Care Provider] - - Patient Data Vitals - Most Recent: Last Vital Signs Temp 97.6 F 12/08/17 04:00 Pulse 86 12/08/17 04:00 Resp 16 12/08/17 04:00 BP 101/76 12/08/17 04:00 Pulse Ox 97 12/08/17 04:00 Weight - Most Recent: 54.522 kg I&O - Last 24 hours: Intake & Output 12/07/17 12/08/17 12/08/17 22:59 06:59 14:59 Intake Total 587 Balance 587 ROLY Results - Last 24 hrs: Microbiology 12/02/17 20:35 Aerobic Blood Culture - Final Blood - Venous - Lab Draw NO GROWTH AFTER 5 DAYS Anaerobic Blood Culture - Final NO GROWTH AFTER 5 DAYS 12/02/17 20:30 Aerobic Blood Culture - Final Blood - Venous NO GROWTH AFTER 5 DAYS Anaerobic Blood Culture - Final NO GROWTH AFTER 5 DAYS Med Orders - Current: Current Medications Acetaminophen (Tylenol) 650 mg PO Q4H PRN PRN Reason: fever > 101 Last Admin: 12/07/17 06:11 Dose: 650 mg Aspirin (Ecotrin) 325 mg PO DAILY [facility] Last Admin: 12/07/17 08:43 Dose: 325 mg Calcium Carbonate (Calcium Carbonate/Vitamin D 1250 Mg-200 Unit) 1 tab PO BID [facility] Last Admin: 12/07/17 20:39 Dose: 1 tab Donepezil HCl (Aricept) 5 mg PO BEDTIME [facility] Last Admin: 12/07/17 20:39 Dose: 5 mg Enoxaparin Sodium (Lovenox) 30 mg SUBCUT Q24H [facility] Last Admin: 12/07/17 20:39 Dose: 30 mg Gabapentin (Neurontin) 300 mg PO BID [facility] Last Admin: 12/07/17 20:39 Dose: 300 mg Mirtazapine (Remeron) 15 mg PO BEDTIME [facility] Last Admin: 12/07/17 20:43 Dose: 15 mg Nitroglycerin (Nitrostat) 0.4 mg SL Q5M PRN PRN Reason: Chest Pain Sodium Chloride (Saline Flush) 10 ml FLUSH ASDIRECTED PRN PRN Reason: Keep Vein Open Last Admin: 12/07/17 13:30 Dose: 10 ml Discontinued Medications Amitriptyline HCl (Elavil) 25 mg PO BEDTIME [facility] Last Admin: 12/06/17 20:59 Dose: 25 mg Amoxicillin/Clavulanate Potassium (Augmentin 500 Mg\125 Mg) 1 tab PO Q12H [facility] Artificial Tears (Artificial Tears) 0 gm EYERT DAILY PRN PRN Reason: Dry Eyes Calcium Carbonate/Glycine (Tums) 1,000 mg PO ONETIME ONE Stop: 12/01/17 16:14 Last Admin: 12/01/17 16:42 Dose: 1,000 mg Gabapentin (Neurontin) 600 mg PO BEDTIME [facility] Last Admin: 12/02/17 20:40 Dose: 600 mg Gabapentin (Neurontin) 300 mg PO BEDTIME [facility] Last Admin: 12/03/17 21:21 Dose: Not Given Sodium Chloride (Normal Saline) 1,000 mls @ 999 mls/hr IV ASDIRECTED [facility] Last Admin: 11/30/17 09:15 Dose: 999 mls/hr Sodium Chloride (Normal Saline) 500 mls @ 999 mls/hr IV ASDIRECTED [facility] Last Admin: 11/30/17 10:25 Dose: 999 mls/hr Sodium Chloride (Normal Saline) 1,000 mls @ 75 mls/hr IV ASDIRECTED [facility] Last Admin: 12/01/17 19:03 Dose: 75 mls/hr Ampicillin Sodium/Sulbactam (Sodium 1.5 gm/ Sodium Chloride) 50 mls @ 100 mls/ hr IV Q12H [facility] Last Admin: 12/03/17 02:22 Dose: 100 mls/hr Levofloxacin/Dextrose 750 mg/ (Premix) 150 mls @ 100 mls/hr IV Q48H [facility] Stop: 12/07/17 20:01 Last Admin: 12/06/17 20:56 Dose: 100 mls/hr Sodium Chloride (Normal Saline) 1,000 mls @ 999 mls/hr IV ASDIRECTED [facility] Stop: 12/03/17 06:30 Last Admin: 12/03/17 05:25 Dose: 500 mls/hr Sodium Chloride (Normal Saline) 1,000 mls @ 250 mls/hr IV ASDIRECTED [facility] Stop: 12/03/17 18:29 Last Admin: 12/03/17 15:00 Dose: Not Given Dobutamine HCl/Dextrose (Dobutamine 500 Mg In D5w 250 Ml) 500 mg in 250 mls @ 3.304 mls/hr IV TITRATE [facility]; Protocol Sodium Chloride (Normal Saline) 250 mls @ 250 mls/hr IV ONETIME ONE Stop: 12/04/17 04:14 Last Admin: 12/04/17 03:00 Dose: 250 mls/hr Sodium Chloride (Normal Saline) 1,000 mls @ 75 mls/hr IV ASDIRECTED [facility] Last Admin: 12/04/17 06:47 Dose: 75 mls/hr Dobutamine HCl/Dextrose (Dobutamine In D5w 250 Mg/250 Ml) 250 mg in 250 mls @ 6.749 mls/hr IV TITRATE [facility]; Protocol Last Titration: 12/04/17 09:44 Dose: 0 mcg/kg/min, 0 mls/hr Ceftriaxone Sodium 1,000 mg/ (Sodium Chloride) 50 mls @ 100 mls/hr IV Q24H [facility] Last Admin: 12/04/17 09:00 Dose: Not Given Potassium Chloride/Dextrose/Sod Cl (D5 1/2 Ns W/ 10 Meq/L Kcl) 1,000 mls @ 50 mls/hr IV ASDIRECTED [facility] Last Admin: 12/06/17 06:35 Dose: 50 mls/hr Dextrose/Sodium Chloride (Dextrose 5%-1/2 Ns) 1,000 mls @ 75 mls/hr IV ASDIRECTED [facility] Last Admin: 12/07/17 05:07 Dose: 75 mls/hr Lisinopril (Prinivil) 2.5 mg PO DAILY [facility] Last Admin: 12/02/17 08:41 Dose: 2.5 mg Mirtazapine (Remeron) 15 mg PO BEDTIME [facility] Ondansetron HCl (Zofran) 4 mg IVPUSH Q4H [facility] Last Admin: 12/02/17 13:37 Dose: Not Given Ondansetron HCl (Zofran) 4 mg IVPUSH Q8H PRN PRN Reason: Nausea *Q Meaningful Use (DIS) - Stroke *Q Anticoagulation Contraindications Stroke *Q: Med/TX Not Indicated/Need Antithrombotic Contraindications Stroke *Q: Med/TX Not Indicated/Need
[2017-12-08] MEDS: Gabapentin 300 MG Cap PO SCH ×2 (09:15→20:17)
[2017-12-08] MEDS: Calcium Carbonate/Vitamin D3 1250 MG-200 Unit Tab PO SCH ×2 (09:15→20:17)
[2017-12-08] MEDS: Aspirin 325 MG Tab.EC PO SCH (09:15)
--- NOTE | 2017-12-08 19:40 | PCM.SN ---
- Free Text/Narrative Note: Date of service 12/08/2017 Subjective: Mrs. Lee had a good night. She is sitting up in her waiting for lunch. I discussed with her transitioning to swing bed for she will continue therapies to improve her strength and she is anticipatory of this. Tells me her appetite is improving somewhat. I did start mirtazapine last night. Hoping this will continue to show improvement in her appetite but can take several weeks to show modest effect. She tells she has no headache no congestion no vision change. Denies any tinnitus or vertigo. Denies being lightheaded or off balance when standing and ambulating. She denies any tremors. Denies sore throat difficulty chewing or swallowing coughing or choking while eating or drinking. She denies any worsening weakness numbness or tingling to the left upper lower extremity. She denies any chest pain or pressure. She feels her breathing is much improved. She denies any palpitations. Denies any abdominal pain and she has had a bowel movement. Denies any flank pain or dysuria. She denies any leg pain Swelling or tenderness. Denies any foot or ankle pain with ambulation. Denies confusion or anxiety or feeling overwhelmed. Allergies, current medications, overnight events and nursing comments reviewed. Objective: Overnight vitals and this morning vitals are documented in the chart and reviewed. No concerns. Gen: Pleasant smiling awake alert and oriented. HEEN NCAT PERRLA sclera anicteric hearing intact tongue protrudes midline nil right facial drooping. Lungs: Aeration bilateral bases equal chest wall expansion no inner subcostal retraction. No wheezing. Does continue to have few inspiratory crackles on the right and left base. Much improved however. She is not on oxygen. Cardiovascula: Regular rate and rhythm normal S1-S2 no ectopy. Peripheral pulses 2+ in the carotids radials dorsalis pedis and posterior tibials GI: Abdomen is soft, nontender nondistended no rigidity bowel sounds normal active. Neur0: Facial droop is normal. Strength in the left upper and lower extremity 4/ 5 when compared to the right for age. He is ambulating in the ruano with a walker and assist. Psych: Affect is slightly flattened, mood mildly depressed, alert and oriented 3. Assessment: - Problem List & Annotations (1) CAP (community acquired pneumonia) SNOMED Code(s): 115856768 Code(s): J18.9 - PNEUMONIA, UNSPECIFIED ORGANISM Status: Acute Current Visit: Yes Qualifiers: Laterality: left (2) CVA (cerebral vascular accident) SNOMED Code(s): 996751270 Code(s): I63.9 - CEREBRAL INFARCTION, UNSPECIFIED Status: Acute Current Visit: Yes Onset Date: 12/03/17 Qualifiers: Precerebral and cerebral artery: middle cerebral artery Laterality of affected vessel: right Annotation/Comment:: Right sided ischemic due to hypoperfusion from cardiogenic shock. (3) Cardiogenic shock SNOMED Code(s): 90853321 Code(s): R57.0 - CARDIOGENIC SHOCK Status: Acute Current Visit: Yes (4) Complaint of debility and malaise SNOMED Code(s): 244424080 Code(s): R53.81 - OTHER MALAISE Status: Acute Current Visit: Yes (5) DNI (do not intubate) SNOMED Code(s): 486373423 Code(s): Z78.9 - OTHER SPECIFIED HEALTH STATUS Status: Acute Current Visit: Yes (6) DNR (do not resuscitate) Status: Acute Current Visit: Yes (7) Muir catheter in place SNOMED Code(s): 123912699 Code(s): Z92.89 - PERSONAL HISTORY OF OTHER MEDICAL TREATMENT Status: Acute Current Visit: Yes (8) History of CVA with residual deficit SNOMED Code(s): 614949566 Code(s): I69.30 - UNSPECIFIED SEQUELAE OF CEREBRAL INFARCTION Status: Acute Current Visit: Yes (9) Hypotension SNOMED Code(s): 94182020 Code(s): I95.9 - HYPOTENSION, UNSPECIFIED Status: Resolved Priority: High Current Visit: Yes Onset Date: 12/03/17 (10) Palliative care status SNOMED Code(s): 719735804 Code(s): Z51.5 - ENCOUNTER FOR PALLIATIVE CARE Status: Acute Current Visit: Yes (11) Septic shock SNOMED Code(s): 88418892 Code(s): A41.9 - SEPSIS, UNSPECIFIED ORGANISM; R65.21 - SEVERE SEPSIS WITH SEPTIC SHOCK Status: Resolved Current Visit: Yes (12) Syncope and collapse SNOMED Code(s): 464555317 Code(s): R55 - SYNCOPE AND COLLAPSE Status: Resolved Current Visit: Yes (13) UTI (urinary tract infection), bacterial SNOMED Code(s): 901957571 Code(s): N39.0 - URINARY TRACT INFECTION, SITE NOT SPECIFIED; A49.9 - BACTERIAL INFECTION, UNSPECIFIED Status: Resolved Current Visit: Yes Plan:: PT/OT continue. Discharge planning with recommendation for swing bed placement tomorrow. I discussed this with her daughter who has an application in place for her mother to [facility] upon discharge from swingbed. .
[2017-12-08] MEDS: Enoxaparin 30 MG/0.3 ML Syringe SUBCUT SCH (20:16)
[2017-12-08] MEDS: Mirtazapine 15 MG Tab PO SCH (20:18)
--- NOTE | 2017-12-09 10:21 | PCM.PN ---
- General Info Date of Service: 12/09/17 Admission Dx/Problem (Free Text): patient without complaints. She denies fevers, chills, cough, chest pain or leg swelling. - Patient Data Vitals - Most Recent: Last Vital Signs Temp 97.7 F 12/09/17 08:00 Pulse 76 12/09/17 08:00 Resp 18 12/09/17 08:00 BP 102/66 12/09/17 08:00 Pulse Ox 97 12/09/17 08:00 Weight - Most Recent: 119 lb 14.4 oz I&O - Last 24 Hours: Intake & Output 12/08/17 12/09/17 12/09/17 22:59 06:59 14:59 Intake Total 50 0 Balance 50 0 Aiden Results Last 24 Hours: Microbiology 12/02/17 20:35 Aerobic Blood Culture - Final Blood - Venous - Lab Draw NO GROWTH AFTER 5 DAYS Anaerobic Blood Culture - Final NO GROWTH AFTER 5 DAYS 12/02/17 20:30 Aerobic Blood Culture - Final Blood - Venous NO GROWTH AFTER 5 DAYS Anaerobic Blood Culture - Final NO GROWTH AFTER 5 DAYS Med Orders - Current: Current Medications Acetaminophen (Tylenol) 650 mg PO Q4H PRN PRN Reason: fever > 101 Last Admin: 12/07/17 06:11 Dose: 650 mg Aspirin (Ecotrin) 325 mg PO DAILY [facility] Last Admin: 12/08/17 09:15 Dose: 325 mg Calcium Carbonate (Calcium Carbonate/Vitamin D 1250 Mg-200 Unit) 1 tab PO BID [facility] Last Admin: 12/08/17 20:17 Dose: 1 tab Donepezil HCl (Aricept) 5 mg PO BEDTIME [facility] Last Admin: 12/08/17 20:17 Dose: 5 mg Enoxaparin Sodium (Lovenox) 30 mg SUBCUT Q24H [facility] Last Admin: 12/08/17 20:16 Dose: 30 mg Gabapentin (Neurontin) 300 mg PO BID [facility] Last Admin: 12/08/17 20:17 Dose: 300 mg Mirtazapine (Remeron) 15 mg PO BEDTIME [facility] Last Admin: 12/08/17 20:18 Dose: 15 mg Nitroglycerin (Nitrostat) 0.4 mg SL Q5M PRN PRN Reason: Chest Pain Sodium Chloride (Saline Flush) 10 ml FLUSH ASDIRECTED PRN PRN Reason: Keep Vein Open Last Admin: 12/07/17 13:30 Dose: 10 ml Discontinued Medications Amitriptyline HCl (Elavil) 25 mg PO BEDTIME [facility] Last Admin: 12/06/17 20:59 Dose: 25 mg Amoxicillin/Clavulanate Potassium (Augmentin 500 Mg\125 Mg) 1 tab PO Q12H [facility] Artificial Tears (Artificial Tears) 0 gm EYERT DAILY PRN PRN Reason: Dry Eyes Calcium Carbonate/Glycine (Tums) 1,000 mg PO ONETIME ONE Stop: 12/01/17 16:14 Last Admin: 12/01/17 16:42 Dose: 1,000 mg Gabapentin (Neurontin) 600 mg PO BEDTIME [facility] Last Admin: 12/02/17 20:40 Dose: 600 mg Gabapentin (Neurontin) 300 mg PO BEDTIME [facility] Last Admin: 12/03/17 21:21 Dose: Not Given Sodium Chloride (Normal Saline) 1,000 mls @ 999 mls/hr IV ASDIRECTED [facility] Last Admin: 11/30/17 09:15 Dose: 999 mls/hr Sodium Chloride (Normal Saline) 500 mls @ 999 mls/hr IV ASDIRECTED [facility] Last Admin: 11/30/17 10:25 Dose: 999 mls/hr Sodium Chloride (Normal Saline) 1,000 mls @ 75 mls/hr IV ASDIRECTED [facility] Last Admin: 12/01/17 19:03 Dose: 75 mls/hr Ampicillin Sodium/Sulbactam (Sodium 1.5 gm/ Sodium Chloride) 50 mls @ 100 mls/ hr IV Q12H [facility] Last Admin: 12/03/17 02:22 Dose: 100 mls/hr Levofloxacin/Dextrose 750 mg/ (Premix) 150 mls @ 100 mls/hr IV Q48H [facility] Stop: 12/07/17 20:01 Last Admin: 12/06/17 20:56 Dose: 100 mls/hr Sodium Chloride (Normal Saline) 1,000 mls @ 999 mls/hr IV ASDIRECTED [facility] Stop: 12/03/17 06:30 Last Admin: 12/03/17 05:25 Dose: 500 mls/hr Sodium Chloride (Normal Saline) 1,000 mls @ 250 mls/hr IV ASDIRECTED [facility] Stop: 12/03/17 18:29 Last Admin: 12/03/17 15:00 Dose: Not Given Dobutamine HCl/Dextrose (Dobutamine 500 Mg In D5w 250 Ml) 500 mg in 250 mls @ 3.304 mls/hr IV TITRATE [facility]; Protocol Sodium Chloride (Normal Saline) 250 mls @ 250 mls/hr IV ONETIME ONE Stop: 12/04/17 04:14 Last Admin: 12/04/17 03:00 Dose: 250 mls/hr Sodium Chloride (Normal Saline) 1,000 mls @ 75 mls/hr IV ASDIRECTED [facility] Last Admin: 12/04/17 06:47 Dose: 75 mls/hr Dobutamine HCl/Dextrose (Dobutamine In D5w 250 Mg/250 Ml) 250 mg in 250 mls @ 6.749 mls/hr IV TITRATE [facility]; Protocol Last Titration: 12/04/17 09:44 Dose: 0 mcg/kg/min, 0 mls/hr Ceftriaxone Sodium 1,000 mg/ (Sodium Chloride) 50 mls @ 100 mls/hr IV Q24H [facility] Last Admin: 12/04/17 09:00 Dose: Not Given Potassium Chloride/Dextrose/Sod Cl (D5 1/2 Ns W/ 10 Meq/L Kcl) 1,000 mls @ 50 mls/hr IV ASDIRECTED [facility] Last Admin: 12/06/17 06:35 Dose: 50 mls/hr Dextrose/Sodium Chloride (Dextrose 5%-1/2 Ns) 1,000 mls @ 75 mls/hr IV ASDIRECTED [facility] Last Admin: 12/07/17 05:07 Dose: 75 mls/hr Lisinopril (Prinivil) 2.5 mg PO DAILY [facility] Last Admin: 12/02/17 08:41 Dose: 2.5 mg Mirtazapine (Remeron) 15 mg PO BEDTIME [facility] Ondansetron HCl (Zofran) 4 mg IVPUSH Q4H [facility] Last Admin: 12/02/17 13:37 Dose: Not Given Ondansetron HCl (Zofran) 4 mg IVPUSH Q8H PRN PRN Reason: Nausea - Exam General: Alert, Oriented, Cooperative Lungs: Clear to Auscultation, Normal Respiratory Effort Cardiovascular: Regular Rate, Regular Rhythm, No Murmurs Extremities: No Pedal Edema - Problem List & Annotations (1) CAP (community acquired pneumonia) SNOMED Code(s): 917228043 Code(s): J18.9 - PNEUMONIA, UNSPECIFIED ORGANISM Status: Acute Current Visit: Yes Qualifiers: Laterality: left (2) Cardiogenic shock SNOMED Code(s): 44765422 Code(s): R57.0 - CARDIOGENIC SHOCK Status: Acute Current Visit: Yes (3) Palliative care status SNOMED Code(s): 944070467 Code(s): Z51.5 - ENCOUNTER FOR PALLIATIVE CARE Status: Acute Current Visit: Yes (4) Hypotension SNOMED Code(s): 50032058 Code(s): I95.9 - HYPOTENSION, UNSPECIFIED Status: Resolved Priority: High Current Visit: Yes Onset Date: 12/03/17 (5) Septic shock SNOMED Code(s): 27102020 Code(s): A41.9 - SEPSIS, UNSPECIFIED ORGANISM; R65.21 - SEVERE SEPSIS WITH SEPTIC SHOCK Status: Resolved Current Visit: Yes - Problem List Review Problem List Initiated/Reviewed/Updated: Yes - Plan Plan:: transfer to swing bed.
--- NOTE | 2017-12-09 10:24 | PCM.DCSUM1 ---
Discharge Summary - Hospital Course Free Text/Narrative:: hospital course-patient was in the hospital and cardiogenic shock. He was pretreated with antibiotics fluids and pressors. Into the basement of the treating physician she actually got better. In she's now off her antibiotics and steroids. She'll be switched to swing bed. Brief History: his 87-year-old female patient was a twin [facility]. She was admitted for weakness and syncope. Should've have a pneumonia and cardiogenic shock. - Discharge Data Discharge Date: 12/09/17 Discharge Disposition: DC/Tfer W/I Hosp To Swing 61 Condition: Fair - Discharge Diagnosis/Problem(s) (1) CAP (community acquired pneumonia) SNOMED Code(s): 147842048 ICD Code: J18.9 - PNEUMONIA, UNSPECIFIED ORGANISM Status: Acute Current Visit: Yes Qualifiers: Laterality: left (2) Cardiogenic shock SNOMED Code(s): 91027368 ICD Code: R57.0 - CARDIOGENIC SHOCK Status: Acute Current Visit: Yes (3) Palliative care status SNOMED Code(s): 664455428 ICD Code: Z51.5 - ENCOUNTER FOR PALLIATIVE CARE Status: Acute Current Visit: Yes (4) Hypotension SNOMED Code(s): 40187569 ICD Code: I95.9 - HYPOTENSION, UNSPECIFIED Status: Resolved Priority: High Current Visit: Yes Onset Date: 12/03/17 (5) Septic shock SNOMED Code(s): 34028628 ICD Code: A41.9 - SEPSIS, UNSPECIFIED ORGANISM; R65.21 - SEVERE SEPSIS WITH SEPTIC SHOCK Status: Resolved Current Visit: Yes - Patient Summary/Data Consults: Consultations 12/01/17 10:16 Consult to Physical Therapy [PT Evaluation and Treatment] [CONS] Routine Please Evaluate and Treat. PT Reason for Consult: weakness an d recent fall This query below is only for informational purposes and is not editable. Admission Diagnosis/Problem: Syncope and collapse 12/01/17 10:21 Consult to Occupational Therapy [OT Evaluation and Treatment] [CONS] Routine Please Evaluate and Treat. OT Reason for Consult: wekaness recent fall This query below is only for informational purposes and is not editable. Admission Diagnosis/Problem: Syncope and collapse 12/08/17 09:11 Nutrition Reassessment/Plan, Adult [Consult to Administrative Analyst] [CONS] Routine Comment: Physician Instructions: Quantity: - Patient Instructions Diet: Regular Diet as Tolerated Activity: As Tolerated Driving: Do Not Drive Showering/Bathing: May Shower Other/Special Instructions: 1. Transfer to swing bed. 2. PT/OT evaluation - Discharge Plan Home Medications: Home Meds Amitriptyline [Elavil] 25 mg PO BEDTIME 11/30/17 [History] Aspirin 325 mg PO DAILY 11/30/17 [History] Calcium Carbonate/Vitamin D3 [Calcium 500 + Vit D Caplet] 1 each PO BID [History] Donepezil HCl 5 mg PO BEDTIME 11/30/17 [History] Gabapentin [Neurontin] 600 mg PO BEDTIME 11/30/17 [History] Lisinopril 2.5 mg PO DAILY 11/30/17 [History] Patient Handouts: Near-Syncope, [id number], Fall Prevention in Hospitals, Adult, Venous Thromboembolism Prevention Referrals: PCP,None [Primary Care Provider] - - Discharge Summary/Plan Comment DC Time >30 min.: No - Patient Data Vitals - Most Recent: Last Vital Signs Temp 97.7 F 12/09/17 08:00 Pulse 76 12/09/17 08:00 Resp 18 12/09/17 08:00 BP 102/66 12/09/17 08:00 Pulse Ox 97 12/09/17 08:00 Weight - Most Recent: 119 lb 14.4 oz I&O - Last 24 hours: Intake & Output 12/08/17 12/09/17 12/09/17 22:59 06:59 14:59 Intake Total 50 0 Balance 50 0 ROLY Results - Last 24 hrs: Microbiology 12/02/17 20:35 Aerobic Blood Culture - Final Blood - Venous - Lab Draw NO GROWTH AFTER 5 DAYS Anaerobic Blood Culture - Final NO GROWTH AFTER 5 DAYS 12/02/17 20:30 Aerobic Blood Culture - Final Blood - Venous NO GROWTH AFTER 5 DAYS Anaerobic Blood Culture - Final NO GROWTH AFTER 5 DAYS Med Orders - Current: Current Medications Acetaminophen (Tylenol) 650 mg PO Q4H PRN PRN Reason: fever > 101 Last Admin: 12/07/17 06:11 Dose: 650 mg Aspirin (Ecotrin) 325 mg PO DAILY [facility] Last Admin: 12/08/17 09:15 Dose: 325 mg Calcium Carbonate (Calcium Carbonate/Vitamin D 1250 Mg-200 Unit) 1 tab PO BID [facility] Last Admin: 12/08/17 20:17 Dose: 1 tab Donepezil HCl (Aricept) 5 mg PO BEDTIME [facility] Last Admin: 12/08/17 20:17 Dose: 5 mg Enoxaparin Sodium (Lovenox) 30 mg SUBCUT Q24H [facility] Last Admin: 12/08/17 20:16 Dose: 30 mg Gabapentin (Neurontin) 300 mg PO BID [facility] Last Admin: 12/08/17 20:17 Dose: 300 mg Mirtazapine (Remeron) 15 mg PO BEDTIME [facility] Last Admin: 12/08/17 20:18 Dose: 15 mg Nitroglycerin (Nitrostat) 0.4 mg SL Q5M PRN PRN Reason: Chest Pain Sodium Chloride (Saline Flush) 10 ml FLUSH ASDIRECTED PRN PRN Reason: Keep Vein Open Last Admin: 12/07/17 13:30 Dose: 10 ml Discontinued Medications Amitriptyline HCl (Elavil) 25 mg PO BEDTIME [facility] Last Admin: 12/06/17 20:59 Dose: 25 mg Amoxicillin/Clavulanate Potassium (Augmentin 500 Mg\125 Mg) 1 tab PO Q12H [facility] Artificial Tears (Artificial Tears) 0 gm EYERT DAILY PRN PRN Reason: Dry Eyes Calcium Carbonate/Glycine (Tums) 1,000 mg PO ONETIME ONE Stop: 12/01/17 16:14 Last Admin: 12/01/17 16:42 Dose: 1,000 mg Gabapentin (Neurontin) 600 mg PO BEDTIME [facility] Last Admin: 12/02/17 20:40 Dose: 600 mg Gabapentin (Neurontin) 300 mg PO BEDTIME [facility] Last Admin: 12/03/17 21:21 Dose: Not Given Sodium Chloride (Normal Saline) 1,000 mls @ 999 mls/hr IV ASDIRECTED [facility] Last Admin: 11/30/17 09:15 Dose: 999 mls/hr Sodium Chloride (Normal Saline) 500 mls @ 999 mls/hr IV ASDIRECTED [facility] Last Admin: 11/30/17 10:25 Dose: 999 mls/hr Sodium Chloride (Normal Saline) 1,000 mls @ 75 mls/hr IV ASDIRECTED [facility] Last Admin: 12/01/17 19:03 Dose: 75 mls/hr Ampicillin Sodium/Sulbactam (Sodium 1.5 gm/ Sodium Chloride) 50 mls @ 100 mls/ hr IV Q12H [facility] Last Admin: 12/03/17 02:22 Dose: 100 mls/hr Levofloxacin/Dextrose 750 mg/ (Premix) 150 mls @ 100 mls/hr IV Q48H [facility] Stop: 12/07/17 20:01 Last Admin: 12/06/17 20:56 Dose: 100 mls/hr Sodium Chloride (Normal Saline) 1,000 mls @ 999 mls/hr IV ASDIRECTED [facility] Stop: 12/03/17 06:30 Last Admin: 12/03/17 05:25 Dose: 500 mls/hr Sodium Chloride (Normal Saline) 1,000 mls @ 250 mls/hr IV ASDIRECTED [facility] Stop: 12/03/17 18:29 Last Admin: 12/03/17 15:00 Dose: Not Given Dobutamine HCl/Dextrose (Dobutamine 500 Mg In D5w 250 Ml) 500 mg in 250 mls @ 3.304 mls/hr IV TITRATE [facility]; Protocol Sodium Chloride (Normal Saline) 250 mls @ 250 mls/hr IV ONETIME ONE Stop: 12/04/17 04:14 Last Admin: 12/04/17 03:00 Dose: 250 mls/hr Sodium Chloride (Normal Saline) 1,000 mls @ 75 mls/hr IV ASDIRECTED [facility] Last Admin: 12/04/17 06:47 Dose: 75 mls/hr Dobutamine HCl/Dextrose (Dobutamine In D5w 250 Mg/250 Ml) 250 mg in 250 mls @ 6.749 mls/hr IV TITRATE [facility]; Protocol Last Titration: 12/04/17 09:44 Dose: 0 mcg/kg/min, 0 mls/hr Ceftriaxone Sodium 1,000 mg/ (Sodium Chloride) 50 mls @ 100 mls/hr IV Q24H [facility] Last Admin: 12/04/17 09:00 Dose: Not Given Potassium Chloride/Dextrose/Sod Cl (D5 1/2 Ns W/ 10 Meq/L Kcl) 1,000 mls @ 50 mls/hr IV ASDIRECTED [facility] Last Admin: 12/06/17 06:35 Dose: 50 mls/hr Dextrose/Sodium Chloride (Dextrose 5%-1/2 Ns) 1,000 mls @ 75 mls/hr IV ASDIRECTED [facility] Last Admin: 12/07/17 05:07 Dose: 75 mls/hr Lisinopril (Prinivil) 2.5 mg PO DAILY [facility] Last Admin: 12/02/17 08:41 Dose: 2.5 mg Mirtazapine (Remeron) 15 mg PO BEDTIME [facility] Ondansetron HCl (Zofran) 4 mg IVPUSH Q4H [facility] Last Admin: 12/02/17 13:37 Dose: Not Given Ondansetron HCl (Zofran) 4 mg IVPUSH Q8H PRN PRN Reason: Nausea *Q Meaningful Use (DIS) - Stroke *Q Anticoagulation Contraindications Stroke *Q: Med/TX Not Indicated/Need Antithrombotic Contraindications Stroke *Q: Med/TX Not Indicated/Need
[2017-12-09] MEDS: Aspirin 325 MG Tab.EC PO SCH (10:31)
[2017-12-09] MEDS: Gabapentin 300 MG Cap PO SCH (10:31)
[2017-12-09] MEDS: Calcium Carbonate/Vitamin D3 1250 MG-200 Unit Tab PO SCH (10:31)
== END 2017-12-09 10:23 | disposition swing bed (61) | DRG 193 ==
LOC: FB.ED 08:39 → FB.MS 13:54 → FB.ICU 12-03 14:28 → OBSVTOIN 12-03 14:28 → FB.MS 12-06 12:42
PROVIDERS: ADMIT Family Medicine; ATTEND Family Medicine
DX: J18.9 Pneumonia, unspecified organism (principal); R53.81 Other malaise; R57.0 Cardiogenic shock; A41.9 Sepsis, unspecified organism; R65.21 Severe sepsis with septic shock; I69.954 Hemiplegia and hemiparesis following unspecified cerebrovascular disease affecting left non-dominant side; N39.0 Urinary tract infection, site not specified; Z51.5 Encounter for palliative care; Z66 Do not resuscitate; E86.0 Dehydration; F03.90 Unspecified dementia, unspecified severity, without behavioral disturbance, psychotic disturbance, mood disturbance, and anxiety; W19.XXXA Unspecified fall, initial encounter; Y92.039 Unspecified place in apartment as the place of occurrence of the external cause; I95.9 Hypotension, unspecified; B95.2 Enterococcus as the cause of diseases classified elsewhere; Z79.82 Long term (current) use of aspirin; R29.810 Facial weakness
CPT/HCPCS: 36415 ×3; 70450; 71045; 71046; 80048 ×2; 80053; 81001; 83880; 84484 ×2; 85025 ×3; 86140; 87040 ×2; 87086; 87088; 87186; 93005 ×2; 96360; 96361; 97161; 97165; 99285 ×2; A9270 ×17; J0287 ×2; J1650; J1956; J2405 ×4; J7040 ×4; J7050 ×3; 51702; 83605; 96365; 96366; 96367; 96372; 96375; 96376; 97110-GO; 97110-GP; 97116-GP; 97530-GP; 97535-GO; G0378; J1250; J3480

== ENCOUNTER 2017-12-09 10:23 | Inpatient (IN) | payer MEDICAID, MEDICARE ==
[2017-12-09] MEDS: Donepezil 5 MG Tab PO SCH (20:06)
[2017-12-09] MEDS: Calcium Carbonate/Vitamin D3 1250 MG-200 Unit Tab PO SCH (20:07)
[2017-12-09] MEDS: Mirtazapine 15 MG Tab PO SCH (20:07)
[2017-12-09] MEDS: Gabapentin 600 MG Tab PO SCH (20:07)
[2017-12-09] MEDS ORDERED: Amitriptyline 25 MG Tab PO SCH (21:00)
[2017-12-10] MEDS: Calcium Carbonate/Vitamin D3 1250 MG-200 Unit Tab PO SCH ×2 (08:58→23:23)
[2017-12-10] MEDS: Aspirin 325 MG Tab.EC PO SCH (08:59)
[2017-12-10] MEDS: Lisinopril 2.5 MG Tab PO SCH (08:59)
[2017-12-10] MEDS: Donepezil 5 MG Tab PO SCH (23:22)
[2017-12-10] MEDS: Mirtazapine 15 MG Tab PO SCH (23:23)
[2017-12-10] MEDS: Gabapentin 600 MG Tab PO SCH (23:23)
[2017-12-11] MEDS: Calcium Carbonate/Vitamin D3 1250 MG-200 Unit Tab PO SCH ×2 (08:18→20:16)
[2017-12-11] MEDS: Lisinopril 2.5 MG Tab PO SCH (08:18)
[2017-12-11] MEDS: Aspirin 325 MG Tab.EC PO SCH (08:20)
[2017-12-11] MEDS ORDERED: Tuberculin, PPD 5 Units/0.1 ML 1 ML MDV IDERM ONE (10:41)
[2017-12-11] MEDS ORDERED: Tuberculin, PPD 5 Units/0.1 ML 1 ML MDV ONE (16:04)
[2017-12-11] MEDS: Donepezil 5 MG Tab PO SCH (20:16)
[2017-12-11] MEDS: Gabapentin 600 MG Tab PO SCH (20:16)
[2017-12-11] MEDS: Mirtazapine 15 MG Tab PO SCH (20:17)
[2017-12-12] MEDS: Calcium Carbonate/Vitamin D3 1250 MG-200 Unit Tab PO SCH (08:36)
[2017-12-12] MEDS: Lisinopril 2.5 MG Tab PO SCH (08:36)
[2017-12-12] MEDS: Aspirin 325 MG Tab.EC PO SCH (08:36)
[2017-12-12] MEDS ORDERED: Tuberculin, PPD 5 Units/0.1 ML 1 ML MDV ONE (08:41)
--- NOTE | 2017-12-12 08:49 | PCM.PN ---
- General Info Date of Service: 12/12/17 Admission Dx/Problem (Free Text): Patient is doing well without concerns. She denies chest pain, shortness breath , fevers or chills. - Patient Data Vitals - Most Recent: Last Vital Signs Temp 97.5 F 12/12/17 08:00 Pulse 63 12/12/17 08:00 Resp 18 12/12/17 08:00 BP 103/61 12/12/17 08:36 Pulse Ox 94 L 12/12/17 08:00 Weight - Most Recent: 119 lb Med Orders - Current: Current Medications Aspirin (Ecotrin) 325 mg PO DAILY [facility] Last Admin: 12/12/17 08:36 Dose: 325 mg Calcium Carbonate (Calcium Carbonate/Vitamin D 1250 Mg-200 Unit) 1 tab PO BID [facility] Last Admin: 12/12/17 08:36 Dose: 1 tab Donepezil HCl (Aricept) 5 mg PO BEDTIME [facility] Last Admin: 12/11/17 20:16 Dose: 5 mg Gabapentin (Neurontin) 600 mg PO BEDTIME [facility] Last Admin: 12/11/17 20:16 Dose: 600 mg Lisinopril (Prinivil) 2.5 mg PO DAILY [facility] Last Admin: 12/12/17 08:36 Dose: 2.5 mg Mirtazapine (Remeron) 15 mg PO BEDTIME [facility] Last Admin: 12/11/17 20:17 Dose: 15 mg Discontinued Medications Tuberculin PPD (Aplisol) 5 unit IDERM ONETIME ONE Stop: 12/11/17 10:42 Tuberculin PPD (Aplisol) Confirm Administered Dose 5 unit .ROUTE .[facility] ONE Stop: 12/11/17 16:05 Last Admin: 12/11/17 17:42 Dose: 5 unit Tuberculin PPD (Aplisol) Confirm Administered Dose 5 unit .ROUTE .[facility] ONE Stop: 12/12/17 08:42 - Exam General: Alert, Oriented, Cooperative Lungs: Clear to Auscultation, Normal Respiratory Effort Cardiovascular: Regular Rate, Regular Rhythm, No Murmurs Extremities: No Pedal Edema - Problem List & Annotations (1) CAP (community acquired pneumonia) SNOMED Code(s): 773321131 Code(s): J18.9 - PNEUMONIA, UNSPECIFIED ORGANISM Status: Acute Current Visit: No Qualifiers: Laterality: left (2) Cardiogenic shock SNOMED Code(s): 61541515 Code(s): R57.0 - CARDIOGENIC SHOCK Status: Acute Current Visit: No - Problem List Review Problem List Initiated/Reviewed/Updated: Yes - My Orders Last 24 Hours: My Active Orders 12/12/17 07:22 Ready for Discharge [RC] PER UNIT ROUTINE - Plan Plan:: Transfer to intermediate today. PT/OT.
--- NOTE | 2017-12-12 08:51 | PCM.DCSUM1 ---
Discharge Summary - Hospital Course Free Text/Narrative:: Wing bed course-it was decided when she was in swing bed that the family decided to put her into [facility]. She did not dissipate that great in PTOT I 'll she states she wants to try now. She has no problems will she was in swing bed. She has no cough, fevers, chest pain or leg swelling. Brief History: Is an 87-year-old female patient that had pneumonia and cardiogenic shock. She recovered and was transferred to swing bed. She is getting PT and OT to swing bed - Discharge Data Discharge Date: 12/12/17 Discharge Disposition: DC/Tfer to [place] [id number] Condition: Good - Discharge Diagnosis/Problem(s) (1) CAP (community acquired pneumonia) SNOMED Code(s): 674360856 ICD Code: J18.9 - PNEUMONIA, UNSPECIFIED ORGANISM Status: Acute Current Visit: No Qualifiers: Laterality: left (2) Cardiogenic shock SNOMED Code(s): 62348621 ICD Code: R57.0 - CARDIOGENIC SHOCK Status: Acute Current Visit: No - Patient Summary/Data Consults: Consultations 12/09/17 10:44 OT Evaluation and Treatment [CONS] Routine Please Evaluate and Treat. OT Reason for Consult: ADL's This query below is only for informational purposes and is not editable. PT Evaluation and Treatment [CONS] Routine Please Evaluate and Treat. PT Reason for Consult: Ambulation This query below is only for informational purposes and is not editable. - Patient Instructions Diet: Regular Diet as Tolerated Activity: As Tolerated Driving: Do Not Drive Showering/Bathing: May Shower Other/Special Instructions: 1. Transfer [facility]. 2. PT/OT - Discharge Plan Prescriptions/Med Rec: Mirtazapine [Remeron] 15 mg PO BEDTIME #30 tablet Home Medications: Home Meds Amitriptyline [Elavil] 25 mg PO BEDTIME 11/30/17 [History] Aspirin 325 mg PO DAILY 11/30/17 [History] Calcium Carbonate/Vitamin D3 [Calcium 500 + Vit D Caplet] 1 each PO BID [History] Donepezil HCl 5 mg PO BEDTIME 11/30/17 [History] Gabapentin [Neurontin] 600 mg PO BEDTIME 11/30/17 [History] Lisinopril 2.5 mg PO DAILY 11/30/17 [History] Mirtazapine [Remeron] 15 mg PO BEDTIME #30 tablet 12/12/17 [Rx] - Discharge Summary/Plan Comment DC Time >30 min.: No - Patient Data Vitals - Most Recent: Last Vital Signs Temp 97.5 F 12/12/17 08:00 Pulse 63 12/12/17 08:00 Resp 18 12/12/17 08:00 BP 103/61 12/12/17 08:36 Pulse Ox 94 L 12/12/17 08:00 Weight - Most Recent: 119 lb Med Orders - Current: Current Medications Aspirin (Ecotrin) 325 mg PO DAILY [facility] Last Admin: 12/12/17 08:36 Dose: 325 mg Calcium Carbonate (Calcium Carbonate/Vitamin D 1250 Mg-200 Unit) 1 tab PO BID [facility] Last Admin: 12/12/17 08:36 Dose: 1 tab Donepezil HCl (Aricept) 5 mg PO BEDTIME [facility] Last Admin: 12/11/17 20:16 Dose: 5 mg Gabapentin (Neurontin) 600 mg PO BEDTIME [facility] Last Admin: 12/11/17 20:16 Dose: 600 mg Lisinopril (Prinivil) 2.5 mg PO DAILY [facility] Last Admin: 12/12/17 08:36 Dose: 2.5 mg Mirtazapine (Remeron) 15 mg PO BEDTIME [facility] Last Admin: 12/11/17 20:17 Dose: 15 mg Discontinued Medications Tuberculin PPD (Aplisol) 5 unit IDERM ONETIME ONE Stop: 12/11/17 10:42 Tuberculin PPD (Aplisol) Confirm Administered Dose 5 unit .ROUTE .[facility] ONE Stop: 12/11/17 16:05 Last Admin: 12/11/17 17:42 Dose: 5 unit Tuberculin PPD (Aplisol) Confirm Administered Dose 5 unit .ROUTE .[facility] ONE Stop: 12/12/17 08:42
== END 2017-12-12 11:30 | DRG 948 ==
LOC: FB.MS 10:23
PROVIDERS: ADMIT Family Medicine; ATTEND Family Medicine
DX: R53.1 Weakness (principal); Z66 Do not resuscitate; Z51.5 Encounter for palliative care
CPT/HCPCS: 86580; A9270-GY

== ENCOUNTER 2018-01-06 23:00 | Emergency (ER) | payer MEDICARE ==
[2018-01-06] MEDS ORDERED: Sodium Chloride 0.9% 10 ML Syringe FLUSH PRN (23:13)
[2018-01-06] MEDS ORDERED: Ketorolac 30 MG/ML SDV IVPUSH ONE (23:14)
--- NOTE | 2018-01-06 23:45 | EDM.PDOC ---
ED HPI GENERAL MEDICAL PROBLEM - General Chief Complaint: Chest Pain Stated Complaint: CHEST PAIN Time Seen by Provider: 01/06/18 23:10 Source of Information: Reports: Patient, Retirement Records History Limitations: Reports: Other (memory impairments) - History of Present Illness INITIAL COMMENTS - FREE TEXT/NARRATIVE: Nursing staff from [facility] called regarding Melodie who was reporting precordial chest pain since 10 pm this evening. Pain was sharp, radiating to the back, without dizziness, nausea, sweats, or palpitations. Upon arrival, she was alert, orientated to person and place, and reported tenderness to palpation of parasternal structures R>L. Her VSS, clinical exam appeared stable, 12 lead ekg noted NSR without changes, and she was empirically administered Toradol 30 mg IV while work up was underway. - Related Data Allergies Allergy/AdvReac Type Severity Reaction Status Date / Time No Known Allergies Allergy Verified 11/30/17 09:07 Home Meds: Home Meds Amitriptyline [Elavil] 25 mg PO BEDTIME 11/30/17 [History] Aspirin 325 mg PO DAILY 11/30/17 [History] Calcium Carbonate/Vitamin D3 [Calcium 500 + Vit D Caplet] 1 each PO BID [History] Donepezil HCl 5 mg PO BEDTIME 11/30/17 [History] Gabapentin [Neurontin] 600 mg PO BEDTIME 11/30/17 [History] Lisinopril 2.5 mg PO DAILY 11/30/17 [History] Mirtazapine [Remeron] 15 mg PO BEDTIME #30 tablet 12/12/17 [Rx] Past Medical History Cardiovascular History: Reports: Hypertension Genitourinary History: Reports: Urinary Incontinence [employer] History: Reports: Other OB/BYN History: X3 Neurological History: Reports: CVA Other Neuro History: CVA X2 1996 and 2003 Psychiatric History: Reports: Dementia - Past Surgical History HEENT Surgical History: Reports: Cataract Surgery GI Surgical History: Reports: None, Appendectomy, Cholecystectomy, Other (See Below) Other GI Surgeries/Procedures: lap esperanza Social & Family History - Family History Family Medical History: Noncontributory - Caffeine Use Caffeine Use: Reports: Coffee Caffeine Use Comment: 2 cups/day ED ROS GENERAL - Review of Systems Review Of Systems: See Below Constitutional: Reports: No Symptoms HEENT: Reports: No Symptoms Respiratory: Reports: No Symptoms Cardiovascular: Reports: Chest Pain Endocrine: Reports: No Symptoms GI/Abdominal: Reports: No Symptoms : Reports: No Symptoms Musculoskeletal: Reports: No Symptoms Skin: Reports: No Symptoms Neurological: Reports: No Symptoms Psychiatric: Reports: Other (some issues with age related memory loss) Hematologic/Lymphatic: Reports: No Symptoms Immunologic: Reports: No Symptoms ED EXAM, GENERAL - Physical Exam Exam: See Below Exam Limited By: No Limitations General Appearance: Alert, WD/WN, Mild Distress, Thin Eye Exam: Bilateral Eye: EOMI, Normal Inspection, PERRL Ears: Normal External Exam Nose: Normal Inspection Throat/Mouth: Normal Inspection, Normal Lips, Normal Oropharynx, Normal Voice, No Airway Compromise Head: Normocephalic Neck: Normal Inspection, Supple, Non-Tender Respiratory/Chest: No Respiratory Distress, Lungs Clear, Normal Breath Sounds, No Accessory Muscle Use, Other (anterior parasternal tenderness of cartilages #4 ,5,6 R>L) Cardiovascular: Normal Peripheral Pulses, Regular Rate, Rhythm, No Edema, No Murmur GI/Abdominal: Normal Bowel Sounds, Soft, Non-Tender, No Organomegaly, No Distention, No Mass (Female) Exam: Deferred Rectal (Female) Exam: Deferred Back Exam: Normal Inspection Extremities: Normal Inspection, Normal Range of Motion Neurological: Alert, CN II-XII Intact, No Motor/Sensory Deficits Psychiatric: Normal Affect, Normal Mood Skin Exam: Warm, Dry, Intact Lymphatic: No Adenopathy Course - Vital Signs Text/Narrative:: Following assessment at the [facility], Melodie was monitored while awaiting results of workup; ekg noted NSR, no acute changes; CBC and BMP baseline, Troponin I <0.017; anterior chest wall pain was 50% improved within 30 minutes of Toradol injection. Case was discussed with daughters and patient who desired analgesics for comfort. - Orders/Labs/Meds Orders: Active Orders 24 hr Category Date Time Status EKG Documentation Completion [RC] ASDIRECTED Care 01/06/18 23:19 Active Sodium Chloride 0.9% [Saline Flush] Med 01/06/18 23:13 Active 10 ml FLUSH ASDIRECTED PRN Peripheral IV Insertion Adult [OM.PC] Routine Oth 01/06/18 23:13 Ordered EKG 12 Lead [EK] Routine Ther 01/06/18 23:14 Ordered Medication Orders Sodium Chloride (Saline Flush) 10 ml FLUSH ASDIRECTED PRN PRN Reason: Keep Vein Open Labs: Laboratory Tests 01/06/18 01/06/18 01/06/18 Range/Units 23:33 23:33 23:33 WBC 13.9 H (4.5-12.0) X10-3/uL RBC 4.52 (3.23-5.20) x10(6)uL Hgb 13.0 (11.5-15.5) g/dL Hct 39.4 (30.0-51.3) % MCV 87.2 (80-96) fL MCH 28.7 (27.7-33.6) pg MCHC 32.9 (32.2-35.4) g/dL RDW 14.3 (11.5-15.5) % Plt Count 270 (125-369) X10(3)uL MPV 8.1 (7.4-10.4) fL Neut % (Auto) 76.0 (46-82) % Lymph % (Auto) 15.1 (13-37) % [place] % (Auto) 5.8 (4-12) % Eos % (Auto) 3 (1.0-5.0) % Baso % (Auto) 0 (0-2) % Neut # (Auto) 10.6 H (1.6-8.3) # Lymph # (Auto) 2.1 (0.6-5.0) # [place] # (Auto) 0.8 (0.0-1.3) # Eos # (Auto) 0.4 (0.0-0.8) # Baso # (Auto) 0.0 (0.0-0.2) # Sodium 139 (135-145) mmol/L Potassium 4.2 (3.5-5.3) mmol/L Chloride 103 (100-110) mmol/L Carbon Dioxide 29 (21-32) mmol/L BUN 16 (7-18) mg/dL Creatinine 1.3 H (0.55-1.02) mg/dL Est Cr Clr Drug Dosing TNP Estimated GFR (MDRD) 39 L (>60) BUN/Creatinine Ratio 12.3 (9-20) Glucose 123 H (80-116) mg/dL Calcium 9.6 (8.6-10.2) mg/dL Troponin I < 0.017 L (<0.017-0.056) ng/mL Meds: Medications Generic Name Dose Route Start Last Admin Trade Name Freq PRN Reason Stop Dose Admin Sodium Chloride 10 ml 01/06/18 23:13 Saline Flush FLUSH ASDIRECTED PRN Keep Vein Open Discontinued Medications Generic Name Dose Route Start Last Admin Trade Name Freq PRN Reason Stop Dose Admin Ketorolac Tromethamine 30 mg 01/06/18 23:14 Toradol IVPUSH 01/06/18 23:15 ONETIME ONE Departure - Departure Time of Disposition: 00:49 Disposition: DC/Tfer to SNF 03 Reason for Transfer *Q: Primary PCI Indicated Condition: Fair Clinical Impression: Atypical chest pain Referrals: Dickson Salas MD [Primary Care Provider] - Forms: ED Department Discharge - Problem List & Annotations (1) Atypical chest pain SNOMED Code(s): 839073603 Code(s): R07.89 - OTHER CHEST PAIN Status: Acute Current Visit: Yes Annotation/Comment:: I suggested NSAIDs for atypical chest pain. - Problem List Review Problem List Initiated/Reviewed/Updated: Yes - My Orders Last 24 Hours: My Active Orders 01/06/18 23:13 Sodium Chloride 0.9% [Saline Flush] 10 ml FLUSH ASDIRECTED PRN Peripheral IV Insertion Adult [OM.PC] Routine 01/06/18 23:14 EKG 12 Lead [EK] Routine 01/06/18 23:19 EKG Documentation Completion [RC] ASDIRECTED - Assessment/Plan Last 24 Hours: My Active Orders 01/06/18 23:13 Sodium Chloride 0.9% [Saline Flush] 10 ml FLUSH ASDIRECTED PRN Peripheral IV Insertion Adult [OM.PC] Routine 01/06/18 23:14 EKG 12 Lead [EK] Routine 01/06/18 23:19 EKG Documentation Completion [RC] ASDIRECTED Plan: Follow up with PCP if needed.
== END 2018-01-07 01:30 ==
LOC: FB.ED 23:00
DX: R07.89 Other chest pain (principal); I10 Essential (primary) hypertension; Z79.82 Long term (current) use of aspirin; Z79.899 Other long term (current) drug therapy
CPT/HCPCS: 36415; 80048; 84484; 85025; 93005; 96374; 99285; J1885; J7050